=== PATIENT | male | born 1970 | race Caucasian/White ===

== ENCOUNTER → 2016-08-13 | Outpatient (CLI) | payer BC ==
[~2016-08-13] MED LIST: ALBUTEROL2.5 MG/3 M IH; AMOXICILLIN 8751 TAB PO; BYDUREON P2 MG/0.65 SQ; CARVEDILOL25 MG PO; CELEXA20 M1 PO; CETIRIZINE10 MG PO; CITALOPRAM20 MG; CYCLOBENZAPRINE10 M1 PO; FLEXERIL 1010 MG/TAB PO; FLOVENT DI50 MCG/Act IH; GLIPIZIDE ER5 MG PO; GLUCOPHAGE1000 MG PO; INSULIN 70/3100 U/ML; LANTUS SOLOS100 U/ML SC; LASIX 40MG TABL40 MG; LASIX20 MG PO; LIORESAL 1010 MG/TAB PO; LISINOPRIL AND1 TA1 PO; LISINOPRIL20 MG PO; METFORMIN1000 MG PO; MIRAPEX 1MG PO; NORCO 325 MG-51 TA1 PO; PRAVASTATIN40 MG PO; PREDNISONE20 M1 PO; PRILOSEC 20MG20 MG PO; Patient's Own Medication PO; ZITHROMAX 250M250 MG PO
== END ==
LOC: LAB 16:37
DX: E11.65 Type 2 diabetes mellitus with hyperglycemia (principal); I10 Essential (primary) hypertension

== ENCOUNTER → 2016-11-10 | Outpatient (CLI) | payer BC ==
[2015-03-13 12:03] VITALS: BP 160/87
== END ==
LOC: LAB 09:02
DX: I10 Essential (primary) hypertension (principal); E11.65 Type 2 diabetes mellitus with hyperglycemia

== ENCOUNTER 2017-05-03 15:57 | Emergency (ER) | payer OTHER ==
[~2017-05-03] VITALS: Ht 175.3 cm; Wt 203.3 kg
[~2017-05-03 15:57] MED LIST changes: -INSULIN 70/3100 U/ML; +INSULIN 70/3100 U/ML SQ; -LASIX 40MG TABL40 MG; +LASIX40 M1 PO
[2017-05-03] MEDS ORDERED: PROAIR HFA0.09 MG/AC IH (16:24)
[2017-05-03 16:28] LABS: BASO # 0.1 (0.02-0.10); EOS # 0.1 (0.04-0.40); EOS % 0.4 % (0.0-4.0); HEMATOCRIT 47.3 % (42.0-52.0); HEMOGLOBIN 13.9 g/dL (13.5-18.0); LYMPH# 2.4 (1.50-4.00); MEAN CELL VOLUME 82 fl (78-100); MEAN CORPUSCULAR HEMOGLOBIN 24 pg (27-31); MEAN PLATELET VOLUME 11.6 fl (7.4-10.4); MONO # 1.3 (0.20-0.80); PLATELET COUNT 265 K/mm3 (130-400); RED BLOOD COUNT 5.75 M/mm3 (4.20-5.60); RED CELL DISTRIBUTION WIDTH 16.2 % (11.5-14.5); WHITE BLOOD COUNT 14.3 K/mm3 (4.8-10.8)
[2017-05-03 16:34] LABS: MEAN CORPUSCULAR HGB CONC 29 g/dL (33-37); NEU # 10.3 (1.40-6.50)
[2017-05-03 16:42] LABS: ALBUMIN 3.4 g/dL (3.5-5.0); BUN/CREATININE RATIO 22.5 (6.0-26.0); CALCIUM 8.6 mg/dL (8.4-10.2); POTASSIUM 4.6 mmol/L (3.6-5.0); TOTAL BILIRUBIN 0.4 mg/dL (0.2-1.3); TOTAL PROTEIN 7.3 g/dL (6.3-8.2)
[2017-05-03 16:46] LABS: D-DIMER 0.69 mg/L FEU (0.15-0.50)
[2017-05-03 16:52] LABS: TROPONIN-I < 0.03 ng/mL (0.00-0.06)
[2017-05-03 17:43] LABS: URINE APPEARANCE CLOUDY; URINE BILIRUBIN NEGATIVE (NEGATIVE); URINE COLOR YELLOW; URINE KETONE NEGATIVE (NEGATIVE); URINE PROTEIN(semi-quant) 3+ mg/dL (NEGATIVE); URINE UROBILINOGEN NORMAL (NORMAL)
[2017-05-03 17:44] LABS: URINE BLOOD NEGATIVE (NEGATIVE); URINE LEUKOCYTE ESTERASE 1+ (NEGATIVE); URINE MUCUS PRESENT (NOT PRESENT); URINE NITRATE NEGATIVE (NEGATIVE); URINE WBC 16-30 /hpf (0-3)
[2017-05-03 22:47] VITALS: BP 151/70
== END 2017-05-03 21:20 | disposition short-term general hospital (02) ==
LOC: ED 15:57
PROVIDERS: Family Medicine
DX: I50.9 Heart failure, unspecified (principal); E11.9 Type 2 diabetes mellitus without complications; N39.0 Urinary tract infection, site not specified; M79.3 Panniculitis, unspecified; R41.0 Disorientation, unspecified; Z79.4 Long term (current) use of insulin; J44.9 Chronic obstructive pulmonary disease, unspecified; Z85.47 Personal history of malignant neoplasm of testis; Z99.81 Dependence on supplemental oxygen
CPT/HCPCS: A4340; J1815; J1940

== ENCOUNTER 2017-07-02 11:00 | Outpatient (RCR) | payer OTHER, MEDICAID ==
[~2017-07-02 11:00] MED LIST changes: +PROAIR HFA0.09 MG/AC IH
[2017-07-07] MEDS ORDERED: LISINOPRIL10 MG PO (13:37)
[2017-07-07] MEDS ORDERED: ACETAMINOPHEN-H1 TA2 PO (13:38)
[2017-07-07] MEDS ORDERED: CYCLOBENZAPRINE10 M1 PO (13:38)
[2017-07-07] MEDS ORDERED: GABAPENTIN TAB600 MG PO (13:39)
== END 2017-09-24 | disposition home or self-care (01) ==
LOC: PT
DX: G72.9 Myopathy, unspecified (principal)

== ENCOUNTER 2017-07-07 13:23 | Emergency (ER) | payer OTHER, MEDICAID ==
[~2017-07-07] VITALS: Ht 175.3 cm; Wt 172.3 kg
[2017-07-07] MEDS ORDERED: LISINOPRIL10 MG PO (13:37)
[2017-07-07] MEDS ORDERED: ACETAMINOPHEN-H1 TA2 PO (13:38)
[2017-07-07] MEDS ORDERED: CYCLOBENZAPRINE10 M1 PO (13:38)
[2017-07-07] MEDS ORDERED: GABAPENTIN TAB600 MG PO (13:39)
[2017-07-07 14:17] LABS: BASO # 0.1 (0.02-0.10); EOS # 0.2 (0.04-0.40); HEMATOCRIT 38.3 % (42.0-52.0); HEMOGLOBIN 11.5 g/dL (13.5-18.0); LYMPH# 2.1 (1.50-4.00); MEAN CELL VOLUME 80 fl (78-100); MEAN CORPUSCULAR HEMOGLOBIN 24 pg (27-31); MEAN CORPUSCULAR HGB CONC 30 g/dL (33-37); MEAN PLATELET VOLUME 10.5 fl (7.4-10.4); MONO # 0.8 (0.20-0.80); NEU # 7.3 (1.40-6.50); PLATELET COUNT 226 K/mm3 (130-400); RED BLOOD COUNT 4.77 M/mm3 (4.20-5.60); WHITE BLOOD COUNT 10.5 K/mm3 (4.8-10.8)
[2017-07-07 14:29] LABS: URINE APPEARANCE CLEAR; URINE BILIRUBIN NEGATIVE (NEGATIVE); URINE BLOOD TRACE (NEGATIVE); URINE COLOR YELLOW; URINE GLUCOSE NEGATIVE (NEGATIVE); URINE KETONE NEGATIVE (NEGATIVE); URINE LEUKOCYTE ESTERASE NEGATIVE (NEGATIVE); URINE NITRATE NEGATIVE (NEGATIVE); URINE PROTEIN(semi-quant) TRACE mg/dL (NEGATIVE); URINE UROBILINOGEN NORMAL (NORMAL)
[2017-07-07 14:41] LABS: ALT/SGPT 27 U/L (21-72); AST-SGOT 25 U/L (17-59); BUN/CREATININE RATIO 21.1 (6.0-26.0); CALCIUM 9.6 mg/dL (8.4-10.2); CARBON DIOXIDE 35 mmol/L (22-30); GLUCOSE 118 mg/dL (75-110); POTASSIUM 4.4 mmol/L (3.6-5.0); SODIUM 141 mmol/L (137-145); TOTAL BILIRUBIN 0.5 mg/dL (0.2-1.3); TOTAL PROTEIN 8.1 g/dL (6.3-8.2)
[2017-07-07 14:46] LABS: ACETAMINOPHEN < 4 ug/mL (10-30); ALCOHOL IN-HOUSE < 10 mg/dL
[2017-07-07 20:38] VITALS: BP 160/89
== END 2017-07-07 20:23 ==
LOC: ED 13:23
PROVIDERS: Physician Assistant
DX: F32.9 Major depressive disorder, single episode, unspecified (principal); R45.851 Suicidal ideations; I11.0 Hypertensive heart disease with heart failure; I50.9 Heart failure, unspecified; E11.9 Type 2 diabetes mellitus without complications; Z85.47 Personal history of malignant neoplasm of testis; Z90.79 Acquired absence of other genital organ(s); Z99.81 Dependence on supplemental oxygen; Z93.1 Gastrostomy status; L89.322 Pressure ulcer of left buttock, stage 2; Z91.14 Patient's other noncompliance with medication regimen; Z79.4 Long term (current) use of insulin

== ENCOUNTER 2017-10-21 09:09 | Emergency (ER) | payer BC, MEDICARE, MEDICAID ==
[~2017-10-21] VITALS: Wt 190.2 kg
[~2017-10-21 09:09] MED LIST changes: +ACETAMINOPHEN-H1 TA2 PO; +LISINOPRIL10 MG PO; +NEURONTIN300 MG/CAP PO
[2017-10-21 10:19] LABS: EOS # 0.2 (0.04-0.40); EOS % 1.7 % (0.0-4.0); HEMATOCRIT 35.9 % (42.0-52.0); HEMOGLOBIN 10.5 g/dL (13.5-18.0); LYMPH# 1.6 (1.50-4.00); MEAN CELL VOLUME 81 fl (78-100); MEAN CORPUSCULAR HEMOGLOBIN 24 pg (27-31); MEAN PLATELET VOLUME 11.2 fl (7.4-10.4); MONO # 0.7 (0.20-0.80); NEU # 7.4 (1.40-6.50); PLATELET COUNT 189 K/mm3 (130-400); RED BLOOD COUNT 4.41 M/mm3 (4.20-5.60); RED CELL DISTRIBUTION WIDTH 16.4 % (11.5-14.5); WHITE BLOOD COUNT 9.9 K/mm3 (4.8-10.8)
[2017-10-21 10:20] LABS: MEAN CORPUSCULAR HGB CONC 29 g/dL (33-37)
[2017-10-21] MEDS ORDERED: CONTRAVE1 TER PO (10:21)
[2017-10-21 10:24] LABS: ALBUMIN 3.7 g/dL (3.5-5.0); BUN/CREATININE RATIO 21.2 (6.0-26.0); CALCIUM 8.9 mg/dL (8.4-10.2); TOTAL BILIRUBIN 0.4 mg/dL (0.2-1.3); TOTAL PROTEIN 7.9 g/dL (6.3-8.2)
[2017-10-21] MEDS ORDERED: ALLERGY RELIEF10 M2 PO (10:25)
[2017-10-21] MEDS ORDERED: VITAMIN E200 UNIT PO (10:26)
[2017-10-21] MEDS ORDERED: FOLIC ACID1 MG PO (10:27)
[2017-10-21] MEDS ORDERED: VITAMIN C PURE500 M1 (10:27)
[2017-10-21] MEDS ORDERED: DESYREL 100MG100 MG PO (10:28)
[2017-10-21 10:30] LABS: D-DIMER 0.43 mg/L FEU (0.15-0.50)
[2017-10-21] MEDS ORDERED: SERTRALINE HYD100 MG PO (10:30)
[2017-10-21] MEDS ORDERED: ZOLOFT25 M1 PO (10:30)
[2017-10-21 10:32] LABS: CKMB ISOENZYME 0.9 ng/mL (0.6-3.5)
[2017-10-21 10:37] LABS: TROPONIN-I < 0.03 ng/mL (0.00-0.06)
[2017-10-21 11:22] VITALS: BP 152/68
== END 2017-10-21 11:36 | disposition home or self-care (01) ==
LOC: ED 09:09
PROVIDERS: Physician Assistant
DX: I11.0 Hypertensive heart disease with heart failure (principal); I50.9 Heart failure, unspecified; E66.2 Morbid (severe) obesity with alveolar hypoventilation; E11.40 Type 2 diabetes mellitus with diabetic neuropathy, unspecified; K21.9 Gastro-esophageal reflux disease without esophagitis; F32.9 Major depressive disorder, single episode, unspecified; Z85.47 Personal history of malignant neoplasm of testis; Z99.81 Dependence on supplemental oxygen; Z79.4 Long term (current) use of insulin

== ENCOUNTER → 2017-11-23 | Outpatient (CLI) | payer BC, MEDICARE, MEDICAID ==
[~2017-11-23] MED LIST changes: +ALLERGY RELIEF10 M2 PO; +CONTRAVE1 TER PO; +DESYREL 100MG100 MG PO; +FOLIC ACID1 MG PO; +SERTRALINE HYD100 MG PO; +VITAMIN C PURE500 M1; +VITAMIN E200 UNIT PO; +ZOLOFT25 M1 PO
== END ==
LOC: RAD 11:57
DX: M79.662 Pain in left lower leg (principal)

== ENCOUNTER → 2017-11-24 | Outpatient (CLI) | payer BC, MEDICARE, MEDICAID ==
[2017-11-24 18:54] LABS: EOS # 0.2 (0.04-0.40); EOS % 1.3 % (0.0-4.0); HEMATOCRIT 37.2 % (42.0-52.0); HEMOGLOBIN 10.5 g/dL (13.5-18.0); LYMPH# 1.8 (1.50-4.00); MEAN CELL VOLUME 82 fl (78-100); MEAN CORPUSCULAR HEMOGLOBIN 23 pg (27-31); MEAN PLATELET VOLUME 11.9 fl (7.4-10.4); MONO # 0.7 (0.20-0.80); PLATELET COUNT 193 K/mm3 (130-400); RED BLOOD COUNT 4.56 M/mm3 (4.20-5.60); RED CELL DISTRIBUTION WIDTH 16.3 % (11.5-14.5); WHITE BLOOD COUNT 11.9 K/mm3 (4.8-10.8)
[2017-11-24 19:04] LABS: ALBUMIN 3.6 g/dL (3.5-5.0); BUN/CREATININE RATIO 21.6 (6.0-26.0); POTASSIUM 3.8 mmol/L (3.6-5.0); TOTAL BILIRUBIN 0.4 mg/dL (0.2-1.3); TOTAL PROTEIN 7.2 g/dL (6.3-8.2)
[2017-11-24 20:21] LABS: MEAN CORPUSCULAR HGB CONC 28 g/dL (33-37); NEU # 9.2 (1.40-6.50)
[2017-11-25 07:34] LABS: URINE APPEARANCE CLEAR; URINE BILIRUBIN NEGATIVE (NEGATIVE); URINE BLOOD NEGATIVE (NEGATIVE); URINE COLOR YELLOW; URINE GLUCOSE NEGATIVE (NEGATIVE); URINE KETONE NEGATIVE (NEGATIVE); URINE LEUKOCYTE ESTERASE NEGATIVE (NEGATIVE); URINE NITRATE NEGATIVE (NEGATIVE); URINE PROTEIN(semi-quant) 1+ mg/dL (NEGATIVE); URINE UROBILINOGEN NORMAL (NORMAL); URINE WBC 0-1 /hpf (0-3)
[2017-11-25 14:57] LABS: TESTOSTERONE 60 ng/dL (240-871)
== END ==
LOC: LAB 16:54
PROVIDERS: Family Medicine
DX: E11.65 Type 2 diabetes mellitus with hyperglycemia (principal); L03.90 Cellulitis, unspecified; E66.01 Morbid (severe) obesity due to excess calories; G47.33 Obstructive sleep apnea (adult) (pediatric)

== ENCOUNTER → 2017-12-02 | Outpatient (CLI) | payer BC, MEDICARE, MEDICAID ==
[2017-12-02 16:08] LABS: BUN/CREATININE RATIO 24.1 (6.0-26.0); CALCIUM 9.1 mg/dL (8.4-10.2); GLUCOSE 196 mg/dL (75-110); POTASSIUM 4.3 mmol/L (3.6-5.0); SODIUM 140 mmol/L (137-145)
[2017-12-02 16:32] LABS: CARBON DIOXIDE > 40 mmol/L (22-30)
== END ==
LOC: LAB 15:26
DX: I50.9 Heart failure, unspecified (principal)

== ENCOUNTER → 2017-12-16 | Outpatient (CLI) | payer BC, MEDICARE, MEDICAID ==
[2017-12-16 16:50] LABS: BUN/CREATININE RATIO 26.2 (6.0-26.0); CALCIUM 8.7 mg/dL (8.4-10.2); POTASSIUM 3.8 mmol/L (3.6-5.0)
== END ==
LOC: LAB 15:33
PROVIDERS: Family Medicine
DX: I50.22 Chronic systolic (congestive) heart failure (principal)

== ENCOUNTER → 2018-01-06 | Outpatient (CLI) | payer BC, MEDICARE, MEDICAID ==
[2018-01-06 17:16] LABS: BUN/CREATININE RATIO 22.5 (6.0-26.0); CALCIUM 8.4 mg/dL (8.4-10.2); POTASSIUM 3.9 mmol/L (3.6-5.0)
== END ==
LOC: LAB 16:27
PROVIDERS: Internal Medicine Cardiovascular Disease
DX: I50.22 Chronic systolic (congestive) heart failure (principal)

== ENCOUNTER → 2018-06-14 | Outpatient (CLI) | payer MEDICARE, BC ==
[2018-06-14 15:49] LABS: ALBUMIN 4.1 g/dL (3.5-5.0); CALCIUM 9.2 mg/dL (8.4-10.2); POTASSIUM 4.3 mmol/L (3.6-5.0); TOTAL BILIRUBIN 0.6 mg/dL (0.2-1.3); TOTAL PROTEIN 7.3 g/dL (6.3-8.2)
[2018-06-14 15:54] LABS: URINE APPEARANCE CLEAR; URINE COLOR YELLOW
[2018-06-14 15:55] LABS: URINE BILIRUBIN NEGATIVE (NEGATIVE); URINE BLOOD TRACE (NEGATIVE); URINE GLUCOSE NEGATIVE (NEGATIVE); URINE KETONE NEGATIVE (NEGATIVE); URINE LEUKOCYTE ESTERASE NEGATIVE (NEGATIVE); URINE NITRATE NEGATIVE (NEGATIVE); URINE PROTEIN(semi-quant) TRACE mg/dL (NEGATIVE); URINE UROBILINOGEN NORMAL (NORMAL)
[2018-06-14 16:00] LABS: EOS # 0.1 (0.04-0.40); EOS % 1.2 % (0.0-4.0); HEMATOCRIT 39.3 % (42.0-52.0); HEMOGLOBIN 11.3 g/dL (13.5-18.0); LYMPH# 1.6 (1.50-4.00); MEAN CELL VOLUME 81 fl (78-100); MEAN CORPUSCULAR HEMOGLOBIN 23 pg (27-31); MEAN PLATELET VOLUME 11.8 fl (7.4-10.4); MONO # 0.8 (0.20-0.80); PLATELET COUNT 201 K/mm3 (130-400); RED BLOOD COUNT 4.84 M/mm3 (4.20-5.60); RED CELL DISTRIBUTION WIDTH 16.3 % (11.5-14.5); WHITE BLOOD COUNT 11.6 K/mm3 (4.8-10.8)
[2018-06-14 16:09] LABS: MEAN CORPUSCULAR HGB CONC 29 g/dL (33-37)
[2018-06-15 00:02] LABS: TESTOSTERONE 596 ng/dL (240-871)
== END ==
LOC: LAB 14:51
PROVIDERS: Family Medicine
DX: I11.0 Hypertensive heart disease with heart failure (principal); I50.9 Heart failure, unspecified

== ENCOUNTER 2018-06-21 15:45 | Emergency (ER) | payer MEDICARE, BC ==
[~2018-06-21] VITALS: Ht 175.3 cm; Wt 207.0 kg
[~2018-06-21 15:45] MED LIST changes: -MIRAPEX 1MG PO; +MIRAPEX1 MG PO; -VITAMIN C PURE500 M1; +VITAMIN C PURE500 M1 PO
[2018-06-21 16:34] LABS: HEMATOCRIT 38.1 % (42.0-52.0); HEMOGLOBIN 10.8 g/dL (13.5-18.0); MEAN CELL VOLUME 82 fl (78-100); MEAN CORPUSCULAR HEMOGLOBIN 23 pg (27-31); MEAN PLATELET VOLUME 11.9 fl (7.4-10.4); PLATELET COUNT 194 K/mm3 (130-400); RED BLOOD COUNT 4.64 M/mm3 (4.20-5.60); RED CELL DISTRIBUTION WIDTH 16.6 % (11.5-14.5)
[2018-06-21 16:36] LABS: ALBUMIN 4.2 g/dL (3.5-5.0); CALCIUM 8.6 mg/dL (8.4-10.2); TOTAL BILIRUBIN 0.6 mg/dL (0.2-1.3); TOTAL PROTEIN 7.7 g/dL (6.3-8.2)
[2018-06-21] MEDS ORDERED: TADALAFIL5 M1 PO (16:48)
[2018-06-21] MEDS ORDERED: MUCINEX 60600 MG/TA1 PO (16:52)
[2018-06-21] MEDS ORDERED: CONTRAVE1 TER PO (16:52)
[2018-06-21] MEDS ORDERED: PROAIR HFA0.09 MG/AC IH (16:53)
[2018-06-21] MEDS ORDERED: LASIX 80MG TABL80 MG (16:55)
[2018-06-21] MEDS ORDERED: POTASSIUM CHLO20 ME4 PO (16:58)
[2018-06-21] MEDS ORDERED: TESTOSTERO200 MG/1 M IM (16:58)
[2018-06-21] MEDS ORDERED: METOLAZONE5 MG PO (16:58)
[2018-06-21] MEDS ORDERED: MAGNESIUM OXIDE (16:59)
[2018-06-21 17:20] LABS: MEAN CORPUSCULAR HGB CONC 28 g/dL (33-37)
[2018-06-21 17:35] LABS: NEUTROPHILS 81 % (42-75)
[2018-06-21 17:36] LABS: LYMPHOCYTE 11 % (20-51); MONOCYTE 7 % (3-10)
[2018-06-21 20:20] VITALS: BP 168/82
[2018-06-21] MEDS ORDERED: DESYREL50 MG PO (22:26)
== END 2018-06-21 20:20 | disposition other institution (70) ==
LOC: ED 15:45
PROVIDERS: Nurse Practitioner Primary Care
DX: I11.0 Hypertensive heart disease with heart failure (principal); I50.9 Heart failure, unspecified; R09.02 Hypoxemia; E66.2 Morbid (severe) obesity with alveolar hypoventilation; I25.10 Atherosclerotic heart disease of native coronary artery without angina pectoris; J44.9 Chronic obstructive pulmonary disease, unspecified; E11.40 Type 2 diabetes mellitus with diabetic neuropathy, unspecified; Z99.81 Dependence on supplemental oxygen; G47.33 Obstructive sleep apnea (adult) (pediatric); F32.9 Major depressive disorder, single episode, unspecified; K21.9 Gastro-esophageal reflux disease without esophagitis; Z79.4 Long term (current) use of insulin; Z79.899 Other long term (current) drug therapy

== ENCOUNTER 2018-06-25 16:54 | Inpatient (IN) | payer MEDICARE, BC ==
[~2018-06-25] VITALS: Ht 175.3 cm; Wt 183.1 kg
[~2018-06-25 16:54] MED LIST changes: +DESYREL50 MG PO; +LASIX 80MG TABL80 MG; +MAGNESIUM OXIDE; +METOLAZONE5 MG PO; +MUCINEX 60600 MG/TA1 PO; +POTASSIUM CHLO20 ME4 PO; +TADALAFIL5 M1 PO; +TESTOSTERO200 MG/1 M IM
[2018-06-25 18:45] VITALS: BP 134/76
[2018-06-26 06:29] VITALS: BP 125/74
[2018-06-26 19:04] VITALS: BP 136/71
[2018-06-27 06:19] VITALS: BP 107/77
[2018-06-27 19:25] VITALS: BP 126/64
[2018-06-28 06:37] VITALS: BP 108/48
[2018-06-28 19:00] VITALS: BP 115/58
[2018-06-29 06:31] VITALS: BP 94/56
[2018-06-29 11:40] VITALS: BP 94/56
== END 2018-06-29 13:45 | DRG 947 ==
LOC: MED/SURG 16:54
PROVIDERS: ADMIT Family Medicine
DX: R53.81 Other malaise (principal); J96.21 Acute and chronic respiratory failure with hypoxia; I50.33 Acute on chronic diastolic (congestive) heart failure; I13.0 Hypertensive heart and chronic kidney disease with heart failure and stage 1 through stage 4 chronic kidney disease, or unspecified chronic kidney disease; Z68.44 Body mass index [BMI] 60.0-69.9, adult; N18.9 Chronic kidney disease, unspecified; E11.22 Type 2 diabetes mellitus with diabetic chronic kidney disease; Z79.4 Long term (current) use of insulin; D50.9 Iron deficiency anemia, unspecified; I25.10 Atherosclerotic heart disease of native coronary artery without angina pectoris; E11.21 Type 2 diabetes mellitus with diabetic nephropathy; E66.01 Morbid (severe) obesity due to excess calories
CPT/HCPCS: J1071; J1650; J1815

== ENCOUNTER → 2018-10-12 | Outpatient (CLI) | payer MEDICARE, BC ==
[2018-10-12 11:52] LABS: EOS # 0.2 (0.04-0.40); HEMATOCRIT 37.4 % (42.0-52.0); HEMOGLOBIN 11.5 g/dL (13.5-18.0); LYMPH# 1.3 (1.50-4.00); MEAN CELL VOLUME 82 fl (78-100); MEAN CORPUSCULAR HEMOGLOBIN 25 pg (27-31); MEAN CORPUSCULAR HGB CONC 31 g/dL (33-37); MONO # 0.7 (0.20-0.80); NEU # 7.5 (1.40-6.50); PLATELET COUNT 179 K/mm3 (130-400); RED BLOOD COUNT 4.57 M/mm3 (4.20-5.60); RED CELL DISTRIBUTION WIDTH 18.2 % (11.5-14.5); WHITE BLOOD COUNT 9.7 K/mm3 (4.8-10.8)
[2018-10-12 11:54] LABS: ALBUMIN 4.2 g/dL (3.5-5.0); CALCIUM 9.8 mg/dL (8.4-10.2); TOTAL BILIRUBIN 0.5 mg/dL (0.2-1.3); TOTAL PROTEIN 8.1 g/dL (6.3-8.2)
[2018-10-13 00:04] LABS: TESTOSTERONE 140 ng/dL (240-871)
== END ==
LOC: LAB 11:01
PROVIDERS: Family Medicine
DX: D50.9 Iron deficiency anemia, unspecified (principal); E66.01 Morbid (severe) obesity due to excess calories; E11.65 Type 2 diabetes mellitus with hyperglycemia; I11.0 Hypertensive heart disease with heart failure; E11.21 Type 2 diabetes mellitus with diabetic nephropathy

== ENCOUNTER 2018-11-11 10:39 | Emergency (ER) | payer MEDICARE, BC ==
[~2018-11-11] VITALS: Wt 189.8 kg
[~2018-11-11 10:39] MED LIST changes: +BACTRIM DS TAB1 EACH PO; +CEPHALEXIN500 M1 PO; +LASIX 80MG TABL80 MG PO; -MAGNESIUM OXIDE; +MAGNESIUM OXIDE PO
[2018-11-11 11:18] LABS: EOS # 0.3 (0.04-0.40); EOS % 2.7 % (0.0-4.0); HEMATOCRIT 34.7 % (42.0-52.0); HEMOGLOBIN 11.5 g/dL (13.5-18.0); LYMPH# 1.2 (1.50-4.00); MEAN CELL VOLUME 94 fl (78-100); MEAN CORPUSCULAR HEMOGLOBIN 31 pg (27-31); MEAN CORPUSCULAR HGB CONC 33 g/dL (33-37); MEAN PLATELET VOLUME 10.8 fl (7.4-10.4); MONO # 0.8 (0.20-0.80); NEU # 7.1 (1.40-6.50); PLATELET COUNT 157 K/mm3 (130-400); RED BLOOD COUNT 3.68 M/mm3 (4.20-5.60); RED CELL DISTRIBUTION WIDTH 19.8 % (11.5-14.5); WHITE BLOOD COUNT 9.4 K/mm3 (4.8-10.8)
[2018-11-11 11:29] LABS: ALBUMIN 4.4 g/dL (3.5-5.0); ALT/SGPT 15 U/L (21-72); AST-SGOT 24 U/L (17-59); CALCIUM 9.1 mg/dL (8.4-10.2); GLUCOSE 103 mg/dL (75-110); POTASSIUM 4.1 mmol/L (3.6-5.0); SODIUM 137 mmol/L (137-145); TOTAL BILIRUBIN 0.5 mg/dL (0.2-1.3); TOTAL PROTEIN 8.3 g/dL (6.3-8.2)
[2018-11-11 11:31] LABS: CARBON DIOXIDE > 40 mmol/L (22-30)
[2018-11-11 11:32] LABS: URINE WBC 0 /hpf (0-3)
[2018-11-11 11:51] LABS: URINE APPEARANCE CLEAR; URINE BILIRUBIN NEGATIVE (NEGATIVE); URINE BLOOD NEGATIVE (NEGATIVE); URINE COLOR YELLOW; URINE GLUCOSE NEGATIVE (NEGATIVE); URINE KETONE NEGATIVE (NEGATIVE); URINE LEUKOCYTE ESTERASE NEGATIVE (NEGATIVE); URINE NITRATE NEGATIVE (NEGATIVE); URINE PROTEIN(semi-quant) TRACE mg/dL (NEGATIVE); URINE UROBILINOGEN NORMAL (NORMAL)
[2018-11-11 12:09] LABS: D-DIMER 0.49 mg/L FEU (0.15-0.50)
[2018-11-11 15:04] VITALS: BP 169/77
[2018-11-12] MEDS ORDERED: VIAGRA100 M1 PO (06:39)
[2018-11-12] MEDS ORDERED: PREMIERPRO IM (06:40)
[2018-11-12] MEDS ORDERED: NATURE'S BLEND500 M1 PO (06:41)
[2018-11-12] MEDS ORDERED: MASON NATURAL O1 SGL PO (06:41)
[2018-11-12] MEDS ORDERED: FERRACTIV IRON1 EACH PO (06:43)
[2018-11-12] MEDS ORDERED: PRILOSEC OTC20 MG PO (06:44)
== END 2018-11-11 15:00 | disposition home or self-care (01) ==
LOC: ED 10:39
PROVIDERS: Nurse Practitioner Primary Care
DX: L03.116 Cellulitis of left lower limb (principal); R60.0 Localized edema; E11.9 Type 2 diabetes mellitus without complications; I10 Essential (primary) hypertension; E66.01 Morbid (severe) obesity due to excess calories; G47.33 Obstructive sleep apnea (adult) (pediatric); F32.9 Major depressive disorder, single episode, unspecified; G25.81 Restless legs syndrome; Z79.4 Long term (current) use of insulin; Z79.84 Long term (current) use of oral hypoglycemic drugs; Z90.89 Acquired absence of other organs
CPT/HCPCS: J2270; J3370; J7040

== ENCOUNTER → 2018-11-14 | Outpatient (CLI) | payer MEDICARE, BC ==
[2018-11-13 20:39] VITALS: BP 191/98
[~2018-11-14] MED LIST changes: +FERRACTIV IRON1 EACH PO; +MASON NATURAL O1 SGL PO; +NATURE'S BLEND500 M1 PO; +PREMIERPRO IM; +PRILOSEC OTC20 MG PO; +VIAGRA100 M1 PO
== END ==
LOC: LAB 06:50
DX: Z01.89 Encounter for other specified special examinations (principal)

== ENCOUNTER 2018-11-17 19:22 | Outpatient (RCR) | payer MEDICARE, BC ==
[2018-11-12 06:50] VITALS: BP 128/67
[2018-11-12 09:14] VITALS: BP 129/79
[2018-11-12 18:47] VITALS: BP 132/59
[2018-11-12 20:41] VITALS: BP 96/51
[2018-11-13 06:40] VITALS: BP 139/66
[2018-11-13 09:58] VITALS: BP 157/80
[2018-11-13 18:40] VITALS: BP 203/93
[2018-11-13 20:39] VITALS: BP 191/98
[2018-11-14 07:16] VITALS: BP 168/75
[2018-11-14 10:22] VITALS: BP 159/74
[2018-11-14 18:30] VITALS: BP 168/64
[2018-11-14 20:39] VITALS: BP 131/78
[2018-11-15 06:50] VITALS: BP 184/82
[2018-11-15 08:51] VITALS: BP 148/73
[2018-11-15 18:47] VITALS: BP 181/69
[2018-11-15 20:42] LABS: VANCOMYCIN TROUGH AMS
[2018-11-15 21:22] VITALS: BP 130/72
[2018-11-16 06:54] VITALS: BP 160/54
[2018-11-16 09:12] VITALS: BP 165/96
[2018-11-16 18:30] VITALS: BP 183/88
[2018-11-16 20:52] VITALS: BP 152/78
[~2018-11-17] VITALS: Ht 175.3 cm; Wt 189.8 kg
[2018-11-17 08:19] VITALS: BP 194/89
[2018-11-17 10:52] VITALS: BP 155/92
[2018-11-17 19:23] VITALS: BP 189/87
[2018-11-17 21:35] VITALS: BP 151/88
[2018-11-18 10:23] VITALS: BP 170/87
[2018-11-18 12:44] VITALS: BP 147/82
== END 2018-11-18 12:44 | disposition home or self-care (01) ==
LOC: AMSURD 19:22
PROVIDERS: Nurse Practitioner Primary Care
DX: L03.116 Cellulitis of left lower limb (principal); R60.0 Localized edema
CPT/HCPCS: J3370; J7040

== ENCOUNTER → 2018-12-17 | Outpatient (CLI) | payer MEDICARE, BC ==
[2018-11-18 12:44] VITALS: BP 147/82
[2018-12-17 12:24] LABS: ALBUMIN 3.8 g/dL (3.5-5.0); CALCIUM 9.3 mg/dL (8.3-10.5); TOTAL BILIRUBIN 0.3 mg/dL (0.2-1.2); TOTAL PROTEIN 7.8 g/dL (6.4-8.3)
[2018-12-17 12:51] LABS: EOS # 0.1 (0.04-0.40); EOS % 1.5 % (0.0-4.0); HEMATOCRIT 41.3 % (42.0-52.0); HEMOGLOBIN 11.5 g/dL (13.5-18.0); LYMPH# 1.5 (1.50-4.00); MEAN CELL VOLUME 80 fl (78-100); MEAN CORPUSCULAR HEMOGLOBIN 22 pg (27-31); MEAN PLATELET VOLUME 11.6 fl (7.4-10.4); MONO # 0.7 (0.20-0.80); NEU # 7.1 (1.40-6.50); PLATELET COUNT 208 K/mm3 (130-400); RED BLOOD COUNT 5.17 M/mm3 (4.20-5.60); RED CELL DISTRIBUTION WIDTH 16.7 % (11.5-14.5); WHITE BLOOD COUNT 9.5 K/mm3 (4.8-10.8)
[2018-12-17 12:53] LABS: MEAN CORPUSCULAR HGB CONC 28 g/dL (33-37)
== END ==
LOC: LAB 10:46
PROVIDERS: Family Medicine
DX: I50.9 Heart failure, unspecified (principal); E11.9 Type 2 diabetes mellitus without complications; L03.90 Cellulitis, unspecified; R79.89 Other specified abnormal findings of blood chemistry

== ENCOUNTER 2018-12-31 13:30 | Outpatient (RCR) | payer MEDICARE, BC | END 2018-12-31 14:00 | disposition still patient (30) | LOC: OT 13:30 | DX: E66.01 Morbid (severe) obesity due to excess calories (principal) ==

== ENCOUNTER 2018-12-31 15:01 | Emergency (ER) | payer MEDICARE, BC ==
[~2018-12-31] VITALS: Ht 175.3 cm; Wt 188.2 kg
[2018-12-31 15:58] LABS: BASO # 0.1 (0.02-0.10); EOS # 0.1 (0.04-0.40); HEMATOCRIT 38.8 % (42.0-52.0); LYMPH# 1.3 (1.50-4.00); MEAN CELL VOLUME 78 fl (78-100); MEAN CORPUSCULAR HEMOGLOBIN 22 pg (27-31); MEAN PLATELET VOLUME 10.9 fl (7.4-10.4); MONO # 0.7 (0.20-0.80); NEU # 7.9 (1.40-6.50); PLATELET COUNT 158 K/mm3 (130-400); RED BLOOD COUNT 4.96 M/mm3 (4.20-5.60); RED CELL DISTRIBUTION WIDTH 17.7 % (11.5-14.5); WHITE BLOOD COUNT 10.1 K/mm3 (4.8-10.8)
[2018-12-31 16:08] LABS: ALBUMIN 3.8 g/dL (3.5-5.0); POTASSIUM 3.8 mmol/L (3.5-5.1)
[2018-12-31 16:10] LABS: TOTAL PROTEIN 7.4 g/dL (6.4-8.3)
[2018-12-31 16:12] LABS: TOTAL BILIRUBIN 0.4 mg/dL (0.2-1.2)
[2018-12-31 16:22] LABS: PARTIAL THROMBOPLASTIN TIME 21.8 SECONDS (21.0-32.0); PROTHROMBIN TIME 10.1 SECONDS (9.0-12.0)
[2018-12-31 16:26] LABS: MEAN CORPUSCULAR HGB CONC 28 g/dL (33-37)
[2018-12-31 20:10] VITALS: BP 160/102
== END 2018-12-31 20:10 | disposition home or self-care (01) ==
LOC: ED 15:01
PROVIDERS: Nurse Practitioner Family
DX: E66.01 Morbid (severe) obesity due to excess calories (principal); R06.00 Dyspnea, unspecified; E11.9 Type 2 diabetes mellitus without complications; E78.5 Hyperlipidemia, unspecified; I10 Essential (primary) hypertension; K21.9 Gastro-esophageal reflux disease without esophagitis; F32.9 Major depressive disorder, single episode, unspecified; G47.30 Sleep apnea, unspecified; Z79.4 Long term (current) use of insulin

== ENCOUNTER 2019-01-05 11:35 | Inpatient (IN) | payer MEDICARE, BC ==
[~2019-01-05] VITALS: Ht 175.3 cm; Wt 187.1 kg
[2019-01-05] MEDS ORDERED: LUNESTA3 M1 PO (11:45)
[2019-01-05] MEDS ORDERED: ZYRTEC ALLERGY10 MG PO (11:47)
[2019-01-05] MEDS ORDERED: ALBUTEROL2.5 MG/3 M IH (11:47)
[2019-01-05] MEDS ORDERED: DIAMOX 250MG250 MG PO (11:51)
[2019-01-05] MEDS ORDERED: FERATE240 MG PO (11:52)
[2019-01-05] MEDS ORDERED: ALDACTONE 25MG25 MG PO (11:53)
[2019-01-05 12:11] VITALS: BP 164/80
[2019-01-05 12:25] LABS: EOS # 0.3 (0.04-0.40); EOS % 2.8 % (0.0-4.0); HEMATOCRIT 40.3 % (42.0-52.0); HEMOGLOBIN 11.5 g/dL (13.5-18.0); LYMPH# 1.7 (1.50-4.00); MEAN CELL VOLUME 78 fl (78-100); MEAN CORPUSCULAR HEMOGLOBIN 22 pg (27-31); MEAN PLATELET VOLUME 10.8 fl (7.4-10.4); MONO # 0.9 (0.20-0.80); PLATELET COUNT 176 K/mm3 (130-400); RED BLOOD COUNT 5.19 M/mm3 (4.20-5.60); RED CELL DISTRIBUTION WIDTH 18.2 % (11.5-14.5)
[2019-01-05 12:36] LABS: ALBUMIN 3.8 g/dL (3.5-5.0); POTASSIUM 3.6 mmol/L (3.5-5.1)
[2019-01-05 12:37] LABS: CALCIUM 9.2 mg/dL (8.3-10.5)
[2019-01-05 12:38] LABS: MEAN CORPUSCULAR HGB CONC 29 g/dL (33-37)
[2019-01-05 12:39] LABS: TOTAL PROTEIN 7.8 g/dL (6.4-8.3)
[2019-01-05 12:40] LABS: TOTAL BILIRUBIN 0.5 mg/dL (0.2-1.2)
[2019-01-05 14:14] LABS: URINE COLOR YELLOW
[2019-01-05 14:15] LABS: URINE APPEARANCE CLEAR; URINE BILIRUBIN NEGATIVE (NEGATIVE); URINE BLOOD NEGATIVE (NEGATIVE); URINE GLUCOSE NEGATIVE (NEGATIVE); URINE KETONE NEGATIVE (NEGATIVE); URINE LEUKOCYTE ESTERASE NEGATIVE (NEGATIVE); URINE NITRATE NEGATIVE (NEGATIVE); URINE PROTEIN(semi-quant) NEGATIVE (NEGATIVE); URINE UROBILINOGEN NORMAL (NORMAL); URINE WBC 0-1 /hpf (0-3)
[2019-01-05 15:00] VITALS: BP 134/62
[2019-01-05 18:53] VITALS: BP 157/81
[2019-01-05 22:49] VITALS: BP 147/77
[2019-01-06] VITALS (7 sets, daily range): BP systolic 96–155; BP diastolic 53–80
[2019-01-06 06:59] LABS: EOS # 0.2 (0.04-0.40); EOS % 1.6 % (0.0-4.0); HEMATOCRIT 41.4 % (42.0-52.0); HEMOGLOBIN 11.7 g/dL (13.5-18.0); LYMPH# 1.7 (1.50-4.00); MEAN CELL VOLUME 79 fl (78-100); MEAN CORPUSCULAR HEMOGLOBIN 22 pg (27-31); MEAN PLATELET VOLUME 10.7 fl (7.4-10.4); MONO # 0.9 (0.20-0.80); NEU # 7.1 (1.40-6.50); PLATELET COUNT 180 K/mm3 (130-400); RED BLOOD COUNT 5.27 M/mm3 (4.20-5.60); RED CELL DISTRIBUTION WIDTH 18.6 % (11.5-14.5); WHITE BLOOD COUNT 9.9 K/mm3 (4.8-10.8)
[2019-01-06 07:00] LABS: POTASSIUM 3.3 mmol/L (3.5-5.1)
[2019-01-06 07:01] LABS: MEAN CORPUSCULAR HGB CONC 28 g/dL (33-37)
[2019-01-07 02:37] VITALS: BP 119/69
[2019-01-07 06:12] VITALS: BP 142/77
[2019-01-07 11:59] VITALS: BP 170/84
[2019-01-07 15:31] VITALS: BP 138/77
[2019-01-07 18:47] VITALS: BP 133/69
[2019-01-07 23:34] VITALS: BP 158/74
[2019-01-08 02:55] VITALS: BP 151/78
[2019-01-08 06:30] VITALS: BP 159/77
[2019-01-08 11:27] VITALS: BP 147/74
[2019-01-08 14:45] LABS: POTASSIUM 4.2 mmol/L (3.5-5.1)
[2019-01-08 14:46] LABS: CALCIUM 9.1 mg/dL (8.3-10.5)
== END 2019-01-08 16:00 | disposition home or self-care (01) | DRG 603 ==
LOC: MED/SURG 11:35
PROVIDERS: Family Medicine; ADMIT Physician Assistant
PROC: 02HV33Z Insertion of Infusion Device into Superior Vena Cava, Percutaneous Approach (ICD-10-PCS; principal; 2019-01-08)
DX: L03.116 Cellulitis of left lower limb (principal); I50.32 Chronic diastolic (congestive) heart failure; E66.2 Morbid (severe) obesity with alveolar hypoventilation; Z68.44 Body mass index [BMI] 60.0-69.9, adult; L03.115 Cellulitis of right lower limb; I11.0 Hypertensive heart disease with heart failure; K21.9 Gastro-esophageal reflux disease without esophagitis; G25.81 Restless legs syndrome; E11.40 Type 2 diabetes mellitus with diabetic neuropathy, unspecified
CPT/HCPCS: J1650; J1815; J1940; J3370; J7050

== ENCOUNTER 2019-01-10 07:58 | Outpatient (RCR) | payer MEDICARE, BC ==
[2019-01-08 20:36] VITALS: BP 140/71
[2019-01-08 22:15] VITALS: BP 133/78
[2019-01-09 08:16] VITALS: BP 148/81
[2019-01-09 09:53] VITALS: BP 140/71
[2019-01-09 21:50] VITALS: BP 164/84; BP 174/84
[2019-01-09 22:00] VITALS: BP 174/84
[~2019-01-10] VITALS: Ht 175.3 cm; Wt 187.1 kg
[~2019-01-10 07:58] MED LIST changes: +ALDACTONE 25MG25 MG PO; +DIAMOX 250MG250 MG PO; +FERATE240 MG PO; +LUNESTA3 M1 PO; +ZYRTEC ALLERGY10 MG PO
[2019-01-10 08:15] VITALS: BP 169/92
[2019-01-10 10:08] VITALS: BP 161/61
== END 2019-01-10 18:00 | disposition home health service (06) ==
LOC: AMSURD 07:58
DX: L03.116 Cellulitis of left lower limb (principal); L03.115 Cellulitis of right lower limb
CPT/HCPCS: J3370; J7050

== ENCOUNTER → 2019-01-25 | Outpatient (CLI) | payer MEDICARE, BC ==
[2019-01-10 10:08] VITALS: BP 161/61
[2019-01-25 12:07] LABS: HEMOGLOBIN 11.5 g/dL (13.5-18.0); MEAN PLATELET VOLUME 10.9 fl (7.4-10.4); RED BLOOD COUNT 5.22 M/mm3 (4.20-5.60); RED CELL DISTRIBUTION WIDTH 18.7 % (11.5-14.5); WHITE BLOOD COUNT 11.6 K/mm3 (4.8-10.8)
[2019-01-25 12:38] LABS: CALCIUM 8.9 mg/dL (8.3-10.5)
[2019-01-25 12:39] LABS: TOTAL PROTEIN 7.4 g/dL (6.4-8.3)
[2019-01-25 12:41] LABS: TOTAL BILIRUBIN 0.5 mg/dL (0.2-1.2)
[2019-01-25 13:01] LABS: ALBUMIN 3.9 g/dL (3.5-5.0); POTASSIUM 4.2 mmol/L (3.5-5.1)
== END ==
LOC: LAB 11:40
PROVIDERS: Internal Medicine Pulmonary Disease
DX: J96.11 Chronic respiratory failure with hypoxia (principal); J96.12 Chronic respiratory failure with hypercapnia; R60.0 Localized edema

== ENCOUNTER 2019-04-05 17:01 | Inpatient (IN) | payer MEDICARE, BC ==
[~2019-04-05] VITALS: Ht 175.3 cm; Wt 163.9 kg
[2019-04-05 18:18] LABS: EOS # 0.2 (0.04-0.40); EOS % 1.6 % (0.0-4.0); HEMATOCRIT 42.5 % (42.0-52.0); HEMOGLOBIN 12.4 g/dL (13.5-18.0); LYMPH# 1.7 (1.50-4.00); MEAN CELL VOLUME 77 fl (78-100); MEAN CORPUSCULAR HEMOGLOBIN 22 pg (27-31); MEAN PLATELET VOLUME 11.5 fl (7.4-10.4); MONO # 0.7 (0.20-0.80); NEU # 7.2 (1.40-6.50); PLATELET COUNT 170 K/mm3 (130-400); RED BLOOD COUNT 5.53 M/mm3 (4.20-5.60); RED CELL DISTRIBUTION WIDTH 18.7 % (11.5-14.5); WHITE BLOOD COUNT 9.8 K/mm3 (4.8-10.8)
[2019-04-05 18:22] LABS: ALBUMIN 3.8 g/dL (3.5-5.0); MEAN CORPUSCULAR HGB CONC 29 g/dL (33-37); POTASSIUM 4.7 mmol/L (3.5-5.1); SODIUM 138 mmol/L (136-145)
[2019-04-05 18:23] LABS: CALCIUM 9.9 mg/dL (8.3-10.5)
[2019-04-05 18:24] LABS: GLUCOSE 209 mg/dL (75-110); TOTAL PROTEIN 7.9 g/dL (6.4-8.3)
[2019-04-05 18:26] LABS: CARBON DIOXIDE 31 mmol/L (22-29); TOTAL BILIRUBIN 0.3 mg/dL (0.2-1.2)
[2019-04-05 18:30] LABS: AST-SGOT 21 U/L (5-34)
[2019-04-05 18:31] LABS: ALT/SGPT 16 U/L (0-55)
[2019-04-05 18:37] LABS: TROPONIN-I < 0.03 ng/mL (<0.030)
[2019-04-05 19:29] VITALS: BP 146/83
[2019-04-05 19:37] VITALS: BP 146/83
[2019-04-05] MEDS ORDERED: ZOLPIDEM TART10 MG PO (19:38)
[2019-04-05] MEDS ORDERED: TESTOSTERO200 MG/1 M IM (19:38)
[2019-04-05] MEDS ORDERED: SILDENAFIL CITR20 M1 PO (19:39)
[2019-04-05] MEDS ORDERED: NOVOLOG FLEX100 U/ML SQ (19:40)
[2019-04-05 20:24] LABS: PH-URINE 6.5 (5.0 - 8.0); URINE APPEARANCE HAZY; URINE COLOR YELLOW; URINE PROTEIN(semi-quant) NEGATIVE (NEGATIVE)
[2019-04-05 20:25] LABS: URINE BILIRUBIN NEGATIVE (NEGATIVE); URINE BLOOD TRACE (NEGATIVE); URINE GLUCOSE NEGATIVE (NEGATIVE); URINE KETONE NEGATIVE (NEGATIVE); URINE LEUKOCYTE ESTERASE NEGATIVE (NEGATIVE); URINE NITRATE NEGATIVE (NEGATIVE); URINE UROBILINOGEN NORMAL (NORMAL)
[2019-04-05 23:00] VITALS: BP 164/88
[2019-04-06 03:00] VITALS: BP 125/75
[2019-04-06 06:22] LABS: EOS # 0.3 (0.04-0.40); EOS % 2.7 % (0.0-4.0); HEMATOCRIT 40.8 % (42.0-52.0); HEMOGLOBIN 12.3 g/dL (13.5-18.0); LYMPH# 2.1 (1.50-4.00); MEAN CELL VOLUME 76 fl (78-100); MEAN CORPUSCULAR HEMOGLOBIN 23 pg (27-31); MEAN CORPUSCULAR HGB CONC 30 g/dL (33-37); MONO # 0.7 (0.20-0.80); NEU # 6.1 (1.40-6.50); PLATELET COUNT 161 K/mm3 (130-400); RED BLOOD COUNT 5.35 M/mm3 (4.20-5.60); RED CELL DISTRIBUTION WIDTH 18.5 % (11.5-14.5); WHITE BLOOD COUNT 9.2 K/mm3 (4.8-10.8)
[2019-04-06 06:26] LABS: ALBUMIN 3.6 g/dL (3.5-5.0); POTASSIUM 3.6 mmol/L (3.5-5.1)
[2019-04-06 06:27] LABS: CALCIUM 9.2 mg/dL (8.3-10.5)
[2019-04-06 06:28] LABS: TOTAL PROTEIN 7.6 g/dL (6.4-8.3)
[2019-04-06 06:29] VITALS: BP 138/80
[2019-04-06 06:30] LABS: TOTAL BILIRUBIN 0.4 mg/dL (0.2-1.2)
[2019-04-06 11:00] VITALS: BP 128/75
[2019-04-06 15:20] VITALS: BP 116/67
[2019-04-06] MEDS ORDERED: LISINOPRIL10 MG PO (16:07)
[2019-04-06] MEDS ORDERED: ACETAMINOPHEN-H1 TA2 PO (16:08)
== END 2019-04-06 16:44 | disposition home or self-care (01) | DRG 291 ==
LOC: MED/SURG 17:01
PROVIDERS: ADMIT Family Medicine
DX: I13.0 Hypertensive heart and chronic kidney disease with heart failure and stage 1 through stage 4 chronic kidney disease, or unspecified chronic kidney disease (principal); I50.33 Acute on chronic diastolic (congestive) heart failure; Z68.43 Body mass index [BMI] 50.0-59.9, adult; N17.9 Acute kidney failure, unspecified; I27.20 Pulmonary hypertension, unspecified; E11.21 Type 2 diabetes mellitus with diabetic nephropathy; K21.9 Gastro-esophageal reflux disease without esophagitis; F32.9 Major depressive disorder, single episode, unspecified; E66.01 Morbid (severe) obesity due to excess calories; G47.33 Obstructive sleep apnea (adult) (pediatric); E11.51 Type 2 diabetes mellitus with diabetic peripheral angiopathy without gangrene; G25.81 Restless legs syndrome; I25.10 Atherosclerotic heart disease of native coronary artery without angina pectoris; N18.9 Chronic kidney disease, unspecified; R06.89 Other abnormalities of breathing
CPT/HCPCS: J1650; J1815; J7040

== ENCOUNTER → 2019-07-29 | Outpatient (CLI) | payer MEDICARE, BC ==
[~2019-07-29] VITALS: Ht 175.3 cm; Wt 159.1 kg
[~2019-07-29] MED LIST changes: +NOVOLOG FLEX100 U/ML SQ; +SILDENAFIL CITR20 M1 PO; +ZOLPIDEM TART10 MG PO
[2019-07-29 15:03] VITALS: BP 141/82
--- NOTE | 2019-07-29 15:20 | NUR ---
Patient was in outpatient clinic for dionte to be removed. He has a total of six incisions on his abdomen. 15 total dionte were removed. One incision site located on his left upper abdomen was mildly pink, I applied antibiotic ointment and advised patient to keep an eye on that site watch for pain, increased redness or warmth and to call his provider if any of these symptoms appear. He states he has no pain there currently. Steri strips were place on all incision sites, all incisions were closed and other than the exception mentioned above all were free from erythema.
== END ==
LOC: AMSURD 14:26
DX: Z48.02 Encounter for removal of sutures (principal)

== ENCOUNTER → 2019-09-23 | Outpatient (CLI) | payer MEDICARE, BC ==
[2019-07-29 15:03] VITALS: BP 141/82
[2019-09-23 17:01] LABS: EOS # 0.2 (0.04-0.40); HEMATOCRIT 41.1 % (42.0-52.0); HEMOGLOBIN 12.4 g/dL (13.5-18.0); LYMPH# 2.1 (1.50-4.00); MEAN CELL VOLUME 83 fl (78-100); MEAN CORPUSCULAR HEMOGLOBIN 25 pg (27-31); MEAN CORPUSCULAR HGB CONC 30 g/dL (33-37); MEAN PLATELET VOLUME 11.3 fl (7.4-10.4); MONO # 0.6 (0.20-0.80); NEU # 6.2 (1.40-6.50); PLATELET COUNT 192 K/mm3 (130-400); RED BLOOD COUNT 4.95 M/mm3 (4.20-5.60); RED CELL DISTRIBUTION WIDTH 15.6 % (11.5-14.5); WHITE BLOOD COUNT 9.2 K/mm3 (4.8-10.8)
[2019-09-23 17:11] LABS: POTASSIUM 3.9 mmol/L (3.5-5.1)
[2019-09-23 17:12] LABS: CALCIUM 9.4 mg/dL (8.3-10.5)
[2019-09-23 17:13] LABS: TOTAL PROTEIN 7.8 g/dL (6.4-8.3)
[2019-09-23 17:15] LABS: TOTAL BILIRUBIN 0.2 mg/dL (0.2-1.2)
[2019-09-28 22:33] LABS: VITAMIN A 41.9 mcg/dL (())
== END ==
LOC: LAB 16:49
PROVIDERS: Family Medicine
DX: E11.9 Type 2 diabetes mellitus without complications (principal); E78.5 Hyperlipidemia, unspecified; E56.9 Vitamin deficiency, unspecified; R79.89 Other specified abnormal findings of blood chemistry; Z98.84 Bariatric surgery status

== ENCOUNTER → 2019-12-06 | Outpatient (CLI) | payer MEDICARE ==
[2019-07-29 15:03] VITALS: BP 141/82
[2019-12-06 16:16] LABS: BASO # 0.1 (0.02-0.10); EOS # 0.1 (0.04-0.40); EOS % 1.3 % (0.0-4.0); HEMATOCRIT 43.4 % (42.0-52.0); HEMOGLOBIN 13.6 g/dL (13.5-18.0); LYMPH# 2.1 (1.50-4.00); MEAN CELL VOLUME 81 fl (78-100); MEAN CORPUSCULAR HEMOGLOBIN 25 pg (27-31); MEAN CORPUSCULAR HGB CONC 31 g/dL (33-37); MEAN PLATELET VOLUME 11.6 fl (7.4-10.4); MONO # 0.7 (0.20-0.80); NEU # 6.4 (1.40-6.50); PLATELET COUNT 201 K/mm3 (130-400); RED BLOOD COUNT 5.36 M/mm3 (4.20-5.60); RED CELL DISTRIBUTION WIDTH 14.7 % (11.5-14.5); WHITE BLOOD COUNT 9.4 K/mm3 (4.8-10.8)
[2019-12-06 16:30] LABS: ALBUMIN 4.2 g/dL (3.5-5.0)
[2019-12-06 16:31] LABS: CALCIUM 9.3 mg/dL (8.3-10.5)
[2019-12-06 16:32] LABS: TOTAL PROTEIN 8.2 g/dL (6.4-8.3)
[2019-12-06 16:34] LABS: TOTAL BILIRUBIN 0.3 mg/dL (0.2-1.2)
[2019-12-09 13:27] LABS: VITAMIN A 44.7 mcg/dL (())
== END ==
LOC: LAB 15:23
PROVIDERS: Family Medicine
DX: E11.9 Type 2 diabetes mellitus without complications (principal); E78.5 Hyperlipidemia, unspecified; E56.9 Vitamin deficiency, unspecified; E66.2 Morbid (severe) obesity with alveolar hypoventilation; R79.89 Other specified abnormal findings of blood chemistry; Z98.84 Bariatric surgery status

== ENCOUNTER 2019-12-19 17:00 | Emergency (ER) | payer MEDICARE, MEDICAID ==
[~2019-12-19] VITALS: Wt 146.0 kg
[2019-12-19] MEDS ORDERED: FUROSEMIDE20 MG PO (17:09)
[2019-12-19] MEDS ORDERED: PRILOSEC 20MG20 MG PO (17:09)
[2019-12-19] MEDS ORDERED: ZOLOFT 100MG100 MG PO (17:10)
[2019-12-19] MEDS ORDERED: MULTIVITAMIN1 SGL PO (17:10)
[2019-12-19] MEDS ORDERED: NEURONTIN300 MG/CAP (17:11)
[2019-12-19] MEDS ORDERED: AMITRIPTYLINE H25 M2 PO (17:11)
[2019-12-19 17:44] LABS: EOS # 0.2 (0.04-0.40); EOS % 1.6 % (0.0-4.0); HEMATOCRIT 42.5 % (42.0-52.0); HEMOGLOBIN 13.1 g/dL (13.5-18.0); LYMPH# 1.9 (1.50-4.00); MEAN CELL VOLUME 82 fl (78-100); MEAN CORPUSCULAR HEMOGLOBIN 25 pg (27-31); MEAN CORPUSCULAR HGB CONC 31 g/dL (33-37); MEAN PLATELET VOLUME 10.9 fl (7.4-10.4); MONO # 0.7 (0.20-0.80); NEU # 7.2 (1.40-6.50); PLATELET COUNT 177 K/mm3 (130-400); RED BLOOD COUNT 5.19 M/mm3 (4.20-5.60); RED CELL DISTRIBUTION WIDTH 14.6 % (11.5-14.5); WHITE BLOOD COUNT 9.9 K/mm3 (4.8-10.8)
[2019-12-19 17:51] LABS: ALBUMIN 3.8 g/dL (3.5-5.0); POTASSIUM 3.7 mmol/L (3.5-5.1)
[2019-12-19 17:52] LABS: CALCIUM 8.9 mg/dL (8.3-10.5)
[2019-12-19 17:53] LABS: TOTAL PROTEIN 7.2 g/dL (6.4-8.3)
[2019-12-19 17:55] LABS: TOTAL BILIRUBIN 0.3 mg/dL (0.2-1.2)
[2019-12-19 18:36] VITALS: BP 147/72
== END 2019-12-19 18:38 | disposition home or self-care (01) ==
LOC: ED 17:00
PROVIDERS: Nurse Practitioner Primary Care
DX: R60.0 Localized edema (principal); K21.9 Gastro-esophageal reflux disease without esophagitis; I11.0 Hypertensive heart disease with heart failure; I50.9 Heart failure, unspecified; Z98.84 Bariatric surgery status
CPT/HCPCS: J1940

== ENCOUNTER 2019-12-27 06:03 | Emergency (ER) | payer MEDICARE, MEDICAID ==
[~2019-12-27 06:03] MED LIST changes: +AMITRIPTYLINE H25 M2 PO; +FUROSEMIDE20 MG PO; +MULTIVITAMIN1 SGL PO; +NEURONTIN300 MG/CAP; +ZOLOFT 100MG100 MG PO
[2019-12-27] MEDS ORDERED: SPIRONOLACTONE50 M1 PO (06:36)
[2019-12-27 11:26] VITALS: BP 133/63
== END 2019-12-27 11:36 | disposition home or self-care (01) ==
LOC: ED 06:03
DX: T43.221A Poisoning by selective serotonin reuptake inhibitors, accidental (unintentional), initial encounter (principal); I11.0 Hypertensive heart disease with heart failure; I50.9 Heart failure, unspecified; K21.9 Gastro-esophageal reflux disease without esophagitis; E11.40 Type 2 diabetes mellitus with diabetic neuropathy, unspecified; E66.9 Obesity, unspecified; F32.9 Major depressive disorder, single episode, unspecified; G25.81 Restless legs syndrome; G47.30 Sleep apnea, unspecified; Z85.47 Personal history of malignant neoplasm of testis; Z90.49 Acquired absence of other specified parts of digestive tract; Z90.79 Acquired absence of other genital organ(s); Z98.84 Bariatric surgery status

== ENCOUNTER 2020-02-13 12:31 | Emergency (ER) | payer MEDICARE, MEDICAID ==
[~2020-02-13] VITALS: Wt 142.2 kg
[~2020-02-13 12:31] MED LIST changes: +SPIRONOLACTONE50 M1 PO
[2020-02-13 13:33] LABS: EOS # 0.2 (0.04-0.40); EOS % 1.9 % (0.0-4.0); HEMATOCRIT 41.4 % (42.0-52.0); LYMPH# 2.1 (1.50-4.00); MEAN CELL VOLUME 83 fl (78-100); MEAN CORPUSCULAR HEMOGLOBIN 26 pg (27-31); MEAN CORPUSCULAR HGB CONC 31 g/dL (33-37); MEAN PLATELET VOLUME 11.3 fl (7.4-10.4); MONO # 0.5 (0.20-0.80); NEU # 5.6 (1.40-6.50); PLATELET COUNT 155 K/mm3 (130-400); RED BLOOD COUNT 5.02 M/mm3 (4.20-5.60); RED CELL DISTRIBUTION WIDTH 15.5 % (11.5-14.5); WHITE BLOOD COUNT 8.4 K/mm3 (4.8-10.8)
[2020-02-13 13:35] LABS: URINE APPEARANCE CLEAR; URINE BILIRUBIN NEGATIVE (NEGATIVE); URINE BLOOD NEGATIVE (NEGATIVE); URINE COLOR YELLOW; URINE GLUCOSE NEGATIVE (NEGATIVE); URINE KETONE NEGATIVE (NEGATIVE); URINE LEUKOCYTE ESTERASE TRACE (NEGATIVE); URINE MUCUS PRESENT (NOT PRESENT); URINE NITRATE NEGATIVE (NEGATIVE); URINE PROTEIN(semi-quant) NEGATIVE (NEGATIVE); URINE UROBILINOGEN NORMAL (NORMAL)
[2020-02-13 13:42] LABS: ALBUMIN 3.9 g/dL (3.5-5.0)
[2020-02-13 13:43] LABS: POTASSIUM 3.8 mmol/L (3.5-5.1)
[2020-02-13 13:44] LABS: CALCIUM 8.9 mg/dL (8.3-10.5)
[2020-02-13 13:45] LABS: TOTAL PROTEIN 7.9 g/dL (6.4-8.3)
[2020-02-13 13:47] LABS: TOTAL BILIRUBIN 0.4 mg/dL (0.2-1.2)
[2020-02-13 13:51] LABS: MAGNESIUM 1.95 mg/dL (1.60-2.60)
[2020-02-13] MEDS ORDERED: BARIATRIC MV-I1 EACH PO (14:16)
[2020-02-13] MEDS ORDERED: LASIX80 M1 PO (14:22)
[2020-02-13] MEDS ORDERED: QUETIAPINE FUMA50 MG PO (14:23)
[2020-02-13 16:22] VITALS: BP 126/58
== END 2020-02-13 16:24 | disposition home or self-care (01) ==
LOC: ED 12:31
PROVIDERS: Nurse Practitioner Primary Care
DX: I10 Essential (primary) hypertension (principal); R09.02 Hypoxemia; F32.9 Major depressive disorder, single episode, unspecified; Z98.84 Bariatric surgery status

== ENCOUNTER → 2020-05-04 | Outpatient (CLI) | payer MEDICARE, MEDICAID ==
[~2020-05-04] MED LIST changes: +BARIATRIC MV-I1 EACH PO; +LASIX80 M1 PO; +QUETIAPINE FUMA50 MG PO
== END ==
LOC: LAB 09:10
DX: J02.9 Acute pharyngitis, unspecified (principal); M79.10 Myalgia, unspecified site; Z20.828 Contact with and (suspected) exposure to other viral communicable diseases

== ENCOUNTER → 2020-07-23 | Outpatient (CLI) | payer MEDICARE, MEDICAID ==
[2020-07-23 17:28] LABS: EOS # 0.1 (0.04-0.40); HEMATOCRIT 44.3 % (42.0-52.0); HEMOGLOBIN 13.7 g/dL (13.5-18.0); LYMPH# 2.3 (1.50-4.00); MEAN CELL VOLUME 86 fl (78-100); MEAN CORPUSCULAR HEMOGLOBIN 26 pg (27-31); MEAN CORPUSCULAR HGB CONC 31 g/dL (33-37); MEAN PLATELET VOLUME 10.9 fl (7.4-10.4); MONO # 0.7 (0.20-0.80); NEU # 7.3 (1.40-6.50); PLATELET COUNT 202 K/mm3 (130-400); RED BLOOD COUNT 5.18 M/mm3 (4.20-5.60); RED CELL DISTRIBUTION WIDTH 13.7 % (11.5-14.5); WHITE BLOOD COUNT 10.5 K/mm3 (4.8-10.8)
[2020-07-24 14:02] LABS: POTASSIUM 4.6 mmol/L (3.5-5.1)
== END ==
LOC: LAB 17:10
PROVIDERS: Family Medicine
DX: D50.9 Iron deficiency anemia, unspecified (principal); E11.9 Type 2 diabetes mellitus without complications

== ENCOUNTER 2020-09-30 15:01 | Emergency (ER) | payer MEDICARE, MEDICAID ==
[2020-09-30] MEDS ORDERED: SPIRONOLACTONE50 M1 PO (15:11)
[2020-09-30] MEDS ORDERED: POTASSIUM CHLO20 ME4 PO (15:11)
[2020-09-30 16:00] VITALS: BP 138/84
== END 2020-09-30 16:00 | disposition home or self-care (01) ==
LOC: ED 15:01
DX: S61.011A Laceration without foreign body of right thumb without damage to nail, initial encounter (principal); I50.9 Heart failure, unspecified; E66.9 Obesity, unspecified; Z98.84 Bariatric surgery status; W29.0XXA Contact with powered kitchen appliance, initial encounter; Y92.009 Unspecified place in unspecified non-institutional (private) residence as the place of occurrence of the external cause

== ENCOUNTER → 2020-12-25 | Outpatient (CLI) | payer MEDICARE, MEDICAID ==
[~2020-12-25] MED LIST changes: +DULOXETINE60 MG PO; +ESCITALOPRAM20 MG PO; +MIXED AMPHETAMI20 M1 PO; +PERCOCET 325 MG1 TAB PO; +PRAMIPEXOLE DIHY1 MG PO
== END ==
LOC: LAB 09:15
DX: R79.89 Other specified abnormal findings of blood chemistry (principal)

== ENCOUNTER 2020-12-28 17:15 | Emergency (ER) | payer MEDICARE, MEDICAID ==
[~2020-12-28 17:15] MED LIST changes: -DULOXETINE60 MG PO; -ESCITALOPRAM20 MG PO; -MIXED AMPHETAMI20 M1 PO; -PERCOCET 325 MG1 TAB PO; -PRAMIPEXOLE DIHY1 MG PO
[2020-12-28 18:00] LABS: BASO # 0.05 (0.02-0.10); EOS # 0.09 (0.04-0.40); EOS % 1.2 % (0.0-4.0); HEMATOCRIT 46.1 % (42.0-52.0); HEMOGLOBIN 14.6 g/dL (13.5-18.0); LYMPH# 1.76 (1.50-4.00); MEAN CELL VOLUME 81 fl (78-100); MEAN CORPUSCULAR HEMOGLOBIN 26 pg (27-31); MEAN CORPUSCULAR HGB CONC 32 g/dL (33-37); MEAN PLATELET VOLUME 11.7 fl (7.4-10.4); MONO # 0.48 (0.20-0.80); PLATELET COUNT 147 K/mm3 (130-400); RED BLOOD COUNT 5.67 M/mm3 (4.20-5.60); RED CELL DISTRIBUTION WIDTH 13.4 % (11.5-14.5); WHITE BLOOD COUNT 7.8 K/mm3 (4.8-10.8)
[2020-12-28 18:24] LABS: POTASSIUM 4.2 mmol/L (3.5-5.1); SODIUM 137 mmol/L (136-145)
[2020-12-28 18:25] LABS: CALCIUM 8.5 mg/dL (8.3-10.5)
[2020-12-28 18:26] LABS: GLUCOSE 97 mg/dL (75-110)
[2020-12-28 18:27] LABS: TOTAL PROTEIN 7.2 g/dL (6.4-8.3)
[2020-12-28 18:28] LABS: CARBON DIOXIDE 23 mmol/L (22-29); TOTAL BILIRUBIN 0.3 mg/dL (0.2-1.2)
[2020-12-28 18:32] LABS: AST-SGOT 14 U/L (5-34)
[2020-12-28 18:33] LABS: ALT/SGPT 8 U/L (0-55)
[2020-12-28 18:41] LABS: TROPONIN-I < 0.03 ng/mL (<0.030)
[2020-12-28 18:57] LABS: ALBUMIN 3.8 g/dL (3.5-5.0)
[2020-12-28 20:00] VITALS: BP 135/72
== END 2020-12-28 20:00 | disposition home or self-care (01) ==
LOC: ED 17:15
PROVIDERS: Family Medicine
DX: E11.21 Type 2 diabetes mellitus with diabetic nephropathy (principal); E86.9 Volume depletion, unspecified; R55 Syncope and collapse; G47.30 Sleep apnea, unspecified; E66.9 Obesity, unspecified; F32.9 Major depressive disorder, single episode, unspecified; I50.30 Unspecified diastolic (congestive) heart failure; Z68.41 Body mass index [BMI] 40.0-44.9, adult; Z79.899 Other long term (current) drug therapy
CPT/HCPCS: J7030

== ENCOUNTER 2020-12-30 08:44 | Emergency (ER) | payer MEDICARE, MEDICAID ==
[2020-12-30 10:39] VITALS: BP 142/72
== END 2020-12-30 10:39 | disposition home or self-care (01) ==
LOC: ED 08:44
DX: S20.212A Contusion of left front wall of thorax, initial encounter (principal); S30.0XXA Contusion of lower back and pelvis, initial encounter; I11.0 Hypertensive heart disease with heart failure; I50.9 Heart failure, unspecified; E11.9 Type 2 diabetes mellitus without complications; Z79.899 Other long term (current) drug therapy; W17.89XA Other fall from one level to another, initial encounter; Y92.009 Unspecified place in unspecified non-institutional (private) residence as the place of occurrence of the external cause
CPT/HCPCS: J1885

== ENCOUNTER → 2021-02-18 | Outpatient (CLI) | payer MEDICARE, MEDICAID ==
[~2021-02-18] MED LIST changes: +DULOXETINE60 MG PO; +ESCITALOPRAM20 MG PO; +MIXED AMPHETAMI20 M1 PO; +PERCOCET 325 MG1 TAB PO; +PRAMIPEXOLE DIHY1 MG PO
== END ==
LOC: RAD 09:00
DX: N20.0 Calculus of kidney (principal); N26.1 Atrophy of kidney (terminal); Z95.1 Presence of aortocoronary bypass graft
CPT/HCPCS: Q9967

== ENCOUNTER 2021-03-08 12:59 | Emergency (ER) | payer MEDICARE, MEDICAID ==
[~2021-03-08 12:59] MED LIST changes: -DULOXETINE60 MG PO; -ESCITALOPRAM20 MG PO; -MIXED AMPHETAMI20 M1 PO; -PERCOCET 325 MG1 TAB PO; -PRAMIPEXOLE DIHY1 MG PO
[2021-03-08 13:00] VITALS: BP 138/82
[2021-03-08] MEDS ORDERED: PERCOCET 325 MG1 TAB PO (13:32)
[2021-03-08] MEDS ORDERED: PRAMIPEXOLE DIHY1 MG PO (13:33)
[2021-03-08] MEDS ORDERED: PROAIR HFA0.09 MG/AC IH (13:33)
[2021-03-08] MEDS ORDERED: TESTOSTERO200 MG/1 M IM (13:33)
[2021-03-08] MEDS ORDERED: MIXED AMPHETAMI20 M1 PO (13:33)
[2021-03-08] MEDS ORDERED: DULOXETINE60 MG PO (13:33)
[2021-03-08 14:03] LABS: BASO # 0.06 (0.02-0.10); EOS # 0.14 (0.04-0.40); EOS % 1.6 % (0.0-4.0); HEMATOCRIT 42.7 % (42.0-52.0); HEMOGLOBIN 13.3 g/dL (13.5-18.0); LYMPH# 2.12 (1.50-4.00); MEAN CELL VOLUME 83 fl (78-100); MEAN CORPUSCULAR HEMOGLOBIN 26 pg (27-31); MEAN CORPUSCULAR HGB CONC 31 g/dL (33-37); MEAN PLATELET VOLUME 11.2 fl (7.4-10.4); MONO # 0.62 (0.20-0.80); PLATELET COUNT 175 K/mm3 (130-400); RED BLOOD COUNT 5.17 M/mm3 (4.20-5.60); RED CELL DISTRIBUTION WIDTH 15.6 % (11.5-14.5); WHITE BLOOD COUNT 8.9 K/mm3 (4.8-10.8)
[2021-03-08 14:13] LABS: ALBUMIN 3.8 g/dL (3.5-5.0); POTASSIUM 4.3 mmol/L (3.5-5.1); SODIUM 139 mmol/L (136-145)
[2021-03-08 14:15] LABS: CALCIUM 9.1 mg/dL (8.3-10.5)
[2021-03-08 14:16] LABS: GLUCOSE 100 mg/dL (75-110); TOTAL PROTEIN 7.5 g/dL (6.4-8.3)
[2021-03-08 14:17] LABS: CARBON DIOXIDE 27 mmol/L (22-29)
[2021-03-08 14:18] LABS: TOTAL BILIRUBIN 0.3 mg/dL (0.2-1.2)
[2021-03-08 14:21] LABS: ALCOHOL IN-HOUSE < 10 mg/dL (<10); AST-SGOT 17 U/L (5-34)
[2021-03-08 14:21] LABS: URINE APPEARANCE HAZY; URINE BILIRUBIN NEGATIVE (NEGATIVE); URINE BLOOD NEGATIVE (NEGATIVE); URINE COLOR YELLOW; URINE GLUCOSE NEGATIVE (NEGATIVE); URINE KETONE NEGATIVE (NEGATIVE); URINE LEUKOCYTE ESTERASE 1+ (NEGATIVE); URINE NITRATE NEGATIVE (NEGATIVE); URINE PROTEIN(semi-quant) NEGATIVE (NEGATIVE); URINE UROBILINOGEN NORMAL (NORMAL)
[2021-03-08 14:22] LABS: ALT/SGPT 11 U/L (0-55)
[2021-03-08 14:23] LABS: LIPASE 14 U/L (8-78)
== END 2021-03-08 15:44 | disposition left against medical advice (07) ==
LOC: ED 12:59
PROVIDERS: Nurse Practitioner
DX: I13.0 Hypertensive heart and chronic kidney disease with heart failure and stage 1 through stage 4 chronic kidney disease, or unspecified chronic kidney disease (principal); I50.9 Heart failure, unspecified; N18.9 Chronic kidney disease, unspecified; E11.40 Type 2 diabetes mellitus with diabetic neuropathy, unspecified; E11.22 Type 2 diabetes mellitus with diabetic chronic kidney disease; G47.30 Sleep apnea, unspecified; E66.01 Morbid (severe) obesity due to excess calories; F32.9 Major depressive disorder, single episode, unspecified; Z79.899 Other long term (current) drug therapy; Z79.84 Long term (current) use of oral hypoglycemic drugs

== ENCOUNTER 2021-04-18 09:55 | Emergency (ER) | payer MEDICARE, MEDICAID ==
[~2021-04-18 09:55] MED LIST changes: +DULOXETINE60 MG PO; +MIXED AMPHETAMI20 M1 PO; +PERCOCET 325 MG1 TAB PO; +PRAMIPEXOLE DIHY1 MG PO
[2021-04-18 11:07] LABS: BASO # 0.05 K/mm3 (0.02-0.10); EOS # 0.14 K/mm3 (0.04-0.40); EOS % 1.8 % (0.0-4.0); HEMATOCRIT 43.2 % (42.0-52.0); HEMOGLOBIN 13.7 g/dL (13.5-18.0); LYMPH# 1.77 K/mm3 (1.50-4.00); MEAN CELL VOLUME 84 fl (78-100); MEAN CORPUSCULAR HEMOGLOBIN 27 pg (27-31); MEAN CORPUSCULAR HGB CONC 32 g/dL (33-37); MEAN PLATELET VOLUME 10.8 fl (7.4-10.4); MONO # 0.47 K/mm3 (0.20-0.80); NEU # 5.49 K/mm3 (1.40-6.50); PLATELET COUNT 192 K/mm3 (130-400); RED BLOOD COUNT 5.14 M/mm3 (4.20-5.60); RED CELL DISTRIBUTION WIDTH 15.3 % (11.5-14.5); WHITE BLOOD COUNT 7.9 K/mm3 (4.8-10.8)
[2021-04-18 11:10] LABS: ALBUMIN 3.8 g/dL (3.5-5.0); POTASSIUM 4.4 mmol/L (3.5-5.1); SODIUM 138 mmol/L (136-145)
[2021-04-18 11:11] LABS: CALCIUM 9.2 mg/dL (8.3-10.5)
[2021-04-18 11:13] LABS: GLUCOSE 127 mg/dL (75-110); TOTAL PROTEIN 7.6 g/dL (6.4-8.3)
[2021-04-18 11:14] LABS: CARBON DIOXIDE 23 mmol/L (22-29); TOTAL BILIRUBIN 0.5 mg/dL (0.2-1.2)
[2021-04-18 11:18] LABS: AST-SGOT 14 U/L (5-34)
[2021-04-18 11:19] LABS: ALT/SGPT 10 U/L (0-55)
[2021-04-18 11:30] LABS: ACETAMINOPHEN < 1 ug/mL; ALCOHOL IN-HOUSE < 10 mg/dL (<10)
[2021-04-18 11:35] LABS: URINE BILIRUBIN NEGATIVE (NEGATIVE); URINE BLOOD NEGATIVE (NEGATIVE); URINE COLOR YELLOW; URINE GLUCOSE NEGATIVE (NEGATIVE); URINE KETONE NEGATIVE (NEGATIVE); URINE NITRATE NEGATIVE (NEGATIVE); URINE UROBILINOGEN NORMAL (NORMAL)
[2021-04-18 11:36] LABS: URINE APPEARANCE HAZY; URINE LEUKOCYTE ESTERASE TRACE (NEGATIVE); URINE MUCUS PRESENT (NOT PRESENT); URINE PROTEIN(semi-quant) NEGATIVE (NEGATIVE)
[2021-04-18 22:30] VITALS: BP 144/56
== END 2021-04-18 22:30 ==
LOC: ED 09:55
PROVIDERS: Physician Assistant
DX: F32.A Depression, unspecified (principal); E11.21 Type 2 diabetes mellitus with diabetic nephropathy; E66.01 Morbid (severe) obesity due to excess calories; G47.30 Sleep apnea, unspecified; I11.0 Hypertensive heart disease with heart failure; I50.9 Heart failure, unspecified; Z20.822 Contact with and (suspected) exposure to COVID-19; Z79.899 Other long term (current) drug therapy

== ENCOUNTER 2021-05-13 16:52 | Emergency (ER) | payer MEDICARE, MEDICAID ==
[2021-05-13] MEDS ORDERED: DESYREL50 MG PO (17:34)
[2021-05-13] MEDS ORDERED: ESCITALOPRAM20 MG PO (17:34)
[2021-05-13 18:22] LABS: BASO # 0.05 K/mm3 (0.02-0.10); EOS # 0.07 K/mm3 (0.04-0.40); EOS % 0.8 % (0.0-4.0); HEMATOCRIT 41.9 % (42.0-52.0); HEMOGLOBIN 13.5 g/dL (13.5-18.0); LYMPH# 1.75 K/mm3 (1.50-4.00); MEAN CELL VOLUME 84 fl (78-100); MEAN CORPUSCULAR HEMOGLOBIN 27 pg (27-31); MEAN CORPUSCULAR HGB CONC 32 g/dL (33-37); MEAN PLATELET VOLUME 11.2 fl (7.4-10.4); MONO # 0.57 K/mm3 (0.20-0.80); NEU # 6.71 K/mm3 (1.40-6.50); PLATELET COUNT 186 K/mm3 (130-400); RED BLOOD COUNT 4.98 M/mm3 (4.20-5.60); RED CELL DISTRIBUTION WIDTH 13.8 % (11.5-14.5); WHITE BLOOD COUNT 9.2 K/mm3 (4.8-10.8)
[2021-05-13 18:34] LABS: ALBUMIN 3.8 g/dL (3.5-5.0)
[2021-05-13 18:37] LABS: TOTAL PROTEIN 7.4 g/dL (6.4-8.3)
[2021-05-13 18:39] LABS: TOTAL BILIRUBIN 0.3 mg/dL (0.2-1.2)
[2021-05-13 18:48] LABS: URINE APPEARANCE HAZY; URINE BILIRUBIN 2+ (NEGATIVE); URINE BLOOD TRACE (NEGATIVE); URINE COLOR YELLOW; URINE GLUCOSE NEGATIVE (NEGATIVE); URINE KETONE NEGATIVE (NEGATIVE); URINE LEUKOCYTE ESTERASE 1+ (NEGATIVE); URINE NITRATE NEGATIVE (NEGATIVE); URINE PROTEIN(semi-quant) 1+ mg/dL (NEGATIVE); URINE UROBILINOGEN 4 mg/dL (NORMAL); URINE WBC 31-50 /hpf (0-3)
[2021-05-13 18:49] LABS: URINE MUCUS PRESENT (NOT PRESENT)
[2021-05-13] MEDS ORDERED: BACTRIM DS TAB1 EACH PO (19:20)
[2021-05-13 19:34] VITALS: BP 145/78
== END 2021-05-13 19:34 | disposition home or self-care (01) ==
LOC: ED 16:52
PROVIDERS: Nurse Practitioner
DX: N49.2 Inflammatory disorders of scrotum (principal); N39.0 Urinary tract infection, site not specified; I11.0 Hypertensive heart disease with heart failure; I50.9 Heart failure, unspecified; F32.A Depression, unspecified; E66.01 Morbid (severe) obesity due to excess calories; E11.40 Type 2 diabetes mellitus with diabetic neuropathy, unspecified; Z79.899 Other long term (current) drug therapy

== ENCOUNTER 2021-11-20 10:01 | Emergency (ER) | payer MEDICARE, MEDICAID ==
[~2021-11-20 10:01] MED LIST changes: +ESCITALOPRAM20 MG PO
[2021-11-20 11:49] LABS: BASO # 0.09 K/mm3 (0.02-0.10); EOS # 0.14 K/mm3 (0.04-0.40); EOS % 1.7 % (0.0-4.0); HEMATOCRIT 45.9 % (42.0-52.0); HEMOGLOBIN 14.2 g/dL (13.5-18.0); LYMPH# 2.71 K/mm3 (1.50-4.00); MEAN CELL VOLUME 86 fl (78-100); MEAN CORPUSCULAR HEMOGLOBIN 27 pg (27-31); MEAN CORPUSCULAR HGB CONC 31 g/dL (33-37); MONO # 0.73 K/mm3 (0.20-0.80); NEU # 4.57 K/mm3 (1.40-6.50); PLATELET COUNT 183 K/mm3 (130-400); RED BLOOD COUNT 5.31 M/mm3 (4.20-5.60); RED CELL DISTRIBUTION WIDTH 13.3 % (11.5-14.5); WHITE BLOOD COUNT 8.3 K/mm3 (4.8-10.8)
[2021-11-20] MEDS ORDERED: CLONIDINE HYDR0.1 MG PO (11:51)
[2021-11-20 11:58] LABS: POTASSIUM 5.1 mmol/L (3.5-5.1)
[2021-11-20 11:59] LABS: CALCIUM 8.9 mg/dL (8.3-10.5)
[2021-11-20 12:00] LABS: TOTAL PROTEIN 7.9 g/dL (6.4-8.3)
[2021-11-20 12:02] LABS: TOTAL BILIRUBIN 0.3 mg/dL (0.2-1.2)
[2021-11-20 12:41] LABS: URINE APPEARANCE CLOUDY; URINE BILIRUBIN NEGATIVE (NEGATIVE); URINE BLOOD NEGATIVE (NEGATIVE); URINE COLOR YELLOW; URINE GLUCOSE NEGATIVE (NEGATIVE); URINE KETONE NEGATIVE (NEGATIVE); URINE LEUKOCYTE ESTERASE 1+ (NEGATIVE); URINE NITRATE NEGATIVE (NEGATIVE); URINE PROTEIN(semi-quant) NEGATIVE (NEGATIVE); URINE UROBILINOGEN NORMAL (NORMAL)
[2021-11-20] MEDS ORDERED: MECLIZINE PO (14:18)
[2021-11-20 15:20] VITALS: BP 114/63
== END 2021-11-20 14:42 | disposition home or self-care (01) ==
LOC: ED 10:01
PROVIDERS: Family Medicine; Physician Assistant
DX: E86.0 Dehydration (principal); R55 Syncope and collapse; G47.33 Obstructive sleep apnea (adult) (pediatric); S80.812A Abrasion, left lower leg, initial encounter; S80.811A Abrasion, right lower leg, initial encounter; W54.8XXA Other contact with dog, initial encounter
CPT/HCPCS: J1885; J7030

== ENCOUNTER 2021-12-06 13:53 | Emergency (ER) | payer MEDICARE, MEDICAID ==
[~2021-12-06] VITALS: Ht 175.3 cm; Wt 104.0 kg
[~2021-12-06 13:53] MED LIST changes: +CLONIDINE HYDR0.1 MG PO; +MECLIZINE PO
[2021-12-06 14:59] LABS: BASO # 0.04 K/mm3 (0.02-0.10); EOS # 0.13 K/mm3 (0.04-0.40); EOS % 1.8 % (0.0-4.0); HEMATOCRIT 42.6 % (42.0-52.0); HEMOGLOBIN 13.5 g/dL (13.5-18.0); LYMPH# 1.95 K/mm3 (1.50-4.00); MEAN CELL VOLUME 85 fl (78-100); MEAN CORPUSCULAR HEMOGLOBIN 27 pg (27-31); MEAN CORPUSCULAR HGB CONC 32 g/dL (33-37); MEAN PLATELET VOLUME 11.5 fl (7.4-10.4); MONO # 0.67 K/mm3 (0.20-0.80); NEU # 4.48 K/mm3 (1.40-6.50); PLATELET COUNT 162 K/mm3 (130-400); RED CELL DISTRIBUTION WIDTH 13.2 % (11.5-14.5); WHITE BLOOD COUNT 7.3 K/mm3 (4.8-10.8)
[2021-12-06 15:06] LABS: ALBUMIN 3.8 g/dL (3.5-5.0); POTASSIUM 4.7 mmol/L (3.5-5.1); SODIUM 138 mmol/L (136-145)
[2021-12-06 15:07] LABS: CALCIUM 8.8 mg/dL (8.3-10.5)
[2021-12-06 15:08] LABS: GLUCOSE 118 mg/dL (75-110)
[2021-12-06 15:09] LABS: CARBON DIOXIDE 23 mmol/L (22-29); TOTAL PROTEIN 7.1 g/dL (6.4-8.3)
[2021-12-06 15:10] LABS: TOTAL BILIRUBIN 0.3 mg/dL (0.2-1.2)
[2021-12-06 15:14] LABS: AST-SGOT 14 U/L (5-34)
[2021-12-06 15:15] LABS: ALT/SGPT 9 U/L (0-55)
[2021-12-06 15:18] LABS: ACETAMINOPHEN < 1 ug/mL; ALCOHOL IN-HOUSE < 10 mg/dL (<10)
[2021-12-06] MEDS ORDERED: PREGABALIN75 MG PO (16:24)
[2021-12-06] MEDS ORDERED: BRINTELLIX10 MG PO (16:25)
[2021-12-06] MEDS ORDERED: FUROSEMIDE20 MG PO (16:25)
[2021-12-06] MEDS ORDERED: SILDENAFIL CITR50 MG PO (16:26)
[2021-12-06] MEDS ORDERED: FAMOTIDINE20 MG PO (16:27)
[2021-12-06 18:35] VITALS: BP 127/51
== END 2021-12-06 18:35 | disposition home or self-care (01) ==
LOC: ED 13:53
PROVIDERS: Nurse Practitioner
DX: R45.851 Suicidal ideations (principal); F17.200 Nicotine dependence, unspecified, uncomplicated; Z28.311 Partially vaccinated for COVID-19

== ENCOUNTER 2021-12-26 09:10 | Emergency (ER) | payer MEDICARE, MEDICAID ==
[~2021-12-26 09:10] MED LIST changes: -DECADRON6 M1 PO
[2021-12-26 09:55] LABS: BASO # 0.01 K/mm3 (0.02-0.10); EOS # 0.01 K/mm3 (0.04-0.40); EOS % 0.3 % (0.0-4.0); HEMATOCRIT 43.5 % (42.0-52.0); LYMPH# 0.92 K/mm3 (1.50-4.00); MEAN CELL VOLUME 84 fl (78-100); MEAN CORPUSCULAR HEMOGLOBIN 27 pg (27-31); MEAN CORPUSCULAR HGB CONC 32 g/dL (33-37); MEAN PLATELET VOLUME 11.1 fl (7.4-10.4); MONO # 0.56 K/mm3 (0.20-0.80); NEU # 2.47 K/mm3 (1.40-6.50); PLATELET COUNT 94 K/mm3 (130-400); RED BLOOD COUNT 5.17 M/mm3 (4.20-5.60); RED CELL DISTRIBUTION WIDTH 14.2 % (11.5-14.5)
[2021-12-26 10:04] LABS: ALBUMIN 3.9 g/dL (3.5-5.0); POTASSIUM 4.5 mmol/L (3.5-5.1); SODIUM 137 mmol/L (136-145)
[2021-12-26 10:05] LABS: CALCIUM 8.7 mg/dL (8.3-10.5)
[2021-12-26 10:06] LABS: GLUCOSE 101 mg/dL (75-110); TOTAL PROTEIN 7.2 g/dL (6.4-8.3)
[2021-12-26 10:07] LABS: CARBON DIOXIDE 21 mmol/L (22-29)
[2021-12-26 10:08] LABS: TOTAL BILIRUBIN 0.3 mg/dL (0.2-1.2)
[2021-12-26 10:12] LABS: AST-SGOT 24 U/L (5-34)
[2021-12-26 10:13] LABS: ALT/SGPT 11 U/L (0-55)
[2021-12-26 10:19] LABS: TROPONIN-I < 0.030 ng/mL (<0.030)
[2021-12-26 10:22] LABS: D-DIMER 0.94 mg/L FEU (0.15-0.50)
[2021-12-26] MEDS ORDERED: DECADRON6 M1 PO (12:43)
[2021-12-26 13:12] VITALS: BP 109/61
== END 2021-12-26 13:13 | disposition home or self-care (01) ==
LOC: ED 09:10
PROVIDERS: Physician Assistant
DX: U07.1 COVID-19 (principal); J44.9 Chronic obstructive pulmonary disease, unspecified; R79.1 Abnormal coagulation profile; Z28.310 Unvaccinated for COVID-19; Z73.0 Burn-out
CPT/HCPCS: J1100; Q9967

== ENCOUNTER → 2021-12-26 | Outpatient (CLI) | payer MEDICARE, MEDICAID ==
[~2021-12-26] VITALS: Ht 175.3 cm; Wt 104.0 kg
[~2021-12-26] MED LIST changes: +BRINTELLIX10 MG PO; +DECADRON6 M1 PO; +FAMOTIDINE20 MG PO; +PREGABALIN75 MG PO; +SILDENAFIL CITR50 MG PO
[2021-12-26 13:09] VITALS: BP 109/61
[2021-12-26 14:13] VITALS: BP 109/78
== END ==
LOC: AMSURD 13:00
DX: U07.1 COVID-19 (principal); E11.9 Type 2 diabetes mellitus without complications

== ENCOUNTER 2022-02-11 15:30 | Emergency (ER) | payer MEDICARE, MEDICAID ==
[~2022-02-11] VITALS: Ht 175.3 cm; Wt 104.0 kg
[~2022-02-11 15:30] MED LIST changes: +DECADRON6 M1 PO
[2022-02-11] MEDS ORDERED: PREGABALIN300 MG PO (15:58)
[2022-02-11 16:08] LABS: BASO # 0.03 K/mm3 (0.02-0.10); EOS # 0.08 K/mm3 (0.04-0.40); HEMATOCRIT 44.2 % (42.0-52.0); HEMOGLOBIN 14.3 g/dL (13.5-18.0); LYMPH# 2.31 K/mm3 (1.50-4.00); MEAN CELL VOLUME 85 fl (78-100); MEAN CORPUSCULAR HEMOGLOBIN 27 pg (27-31); MEAN CORPUSCULAR HGB CONC 32 g/dL (33-37); MEAN PLATELET VOLUME 10.1 fl (7.4-10.4); MONO # 0.62 K/mm3 (0.20-0.80); NEU # 5.05 K/mm3 (1.40-6.50); PLATELET COUNT 193 K/mm3 (130-400); RED BLOOD COUNT 5.23 M/mm3 (4.20-5.60); RED CELL DISTRIBUTION WIDTH 16.4 % (11.5-14.5); WHITE BLOOD COUNT 8.1 K/mm3 (4.8-10.8)
[2022-02-11 16:15] LABS: ALBUMIN 3.9 g/dL (3.5-5.0)
[2022-02-11 16:16] LABS: SODIUM 139 mmol/L (136-145)
[2022-02-11 16:17] LABS: CALCIUM 8.8 mg/dL (8.3-10.5)
[2022-02-11 16:18] LABS: GLUCOSE 146 mg/dL (75-110); TOTAL PROTEIN 6.9 g/dL (6.4-8.3)
[2022-02-11 16:19] LABS: CARBON DIOXIDE 23 mmol/L (22-29)
[2022-02-11 16:20] LABS: TOTAL BILIRUBIN 0.2 mg/dL (0.2-1.2)
[2022-02-11 16:23] LABS: AST-SGOT 14 U/L (5-34)
[2022-02-11 16:25] LABS: ACETAMINOPHEN 11 ug/mL; ALT/SGPT 7 U/L (0-55)
[2022-02-11 16:28] LABS: ALCOHOL IN-HOUSE < 10 mg/dL (<10)
[2022-02-11 17:12] LABS: URINE APPEARANCE HAZY; URINE BILIRUBIN NEGATIVE (NEGATIVE); URINE BLOOD NEGATIVE (NEGATIVE); URINE COLOR YELLOW; URINE GLUCOSE NEGATIVE (NEGATIVE); URINE KETONE NEGATIVE (NEGATIVE); URINE LEUKOCYTE ESTERASE 1+ (NEGATIVE); URINE NITRATE NEGATIVE (NEGATIVE); URINE PROTEIN(semi-quant) NEGATIVE (NEGATIVE); URINE UROBILINOGEN NORMAL (NORMAL); URINE WBC 31-50 /hpf (0-3)
[2022-02-11 17:13] LABS: URINE MUCUS PRESENT (NOT PRESENT)
[2022-02-11] MEDS ORDERED: PERCOCET 325 MG1 TA5 PO (21:03)
[2022-02-12 04:30] VITALS: BP 116/79
== END 2022-02-12 13:19 | disposition left against medical advice (07) ==
LOC: ED 15:30
PROVIDERS: Physician Assistant
DX: F32.A Depression, unspecified (principal); R45.851 Suicidal ideations; N39.0 Urinary tract infection, site not specified; Z20.822 Contact with and (suspected) exposure to COVID-19

== ENCOUNTER → 2022-08-25 | Outpatient (CLI) | payer MEDICARE, MEDICAID ==
[~2022-08-25] MED LIST changes: +CALCIUM + D3 E1 EACH PO; +DIVALPROEX SOD500 M2 PO; +DRAMAMINE LESS25 MG PO; +MAGNESIUM400 MG PO; +PERCOCET 325 MG1 TA5 PO; +PREGABALIN300 MG PO
[2022-08-25 08:52] LABS: BASO # 0.06 K/mm3 (0.02-0.10); EOS # 0.13 K/mm3 (0.04-0.40); EOS % 1.9 % (0.0-4.0); HEMATOCRIT 43.7 % (42.0-52.0); HEMOGLOBIN 14.1 g/dL (13.5-18.0); LYMPH# 2.24 K/mm3 (1.50-4.00); MEAN CELL VOLUME 84 fl (78-100); MEAN CORPUSCULAR HEMOGLOBIN 27 pg (27-31); MEAN CORPUSCULAR HGB CONC 32 g/dL (33-37); MEAN PLATELET VOLUME 10.8 fl (7.4-10.4); MONO # 0.49 K/mm3 (0.20-0.80); NEU # 3.85 K/mm3 (1.40-6.50); PLATELET COUNT 173 K/mm3 (130-400); RED BLOOD COUNT 5.22 M/mm3 (4.20-5.60); RED CELL DISTRIBUTION WIDTH 14.4 % (11.5-14.5); WHITE BLOOD COUNT 6.8 K/mm3 (4.8-10.8)
[2022-08-25 08:55] LABS: POTASSIUM 4.1 mmol/L (3.5-5.1)
[2022-08-25 08:56] LABS: ALBUMIN 4.2 g/dL (3.5-5.0)
[2022-08-25 08:57] LABS: CALCIUM 10.2 mg/dL (8.3-10.5)
[2022-08-25 08:58] LABS: TOTAL PROTEIN 7.8 g/dL (6.4-8.3)
[2022-08-25 09:00] LABS: TOTAL BILIRUBIN 0.5 mg/dL (0.2-1.2)
== END ==
LOC: LAB 08:03
PROVIDERS: Family Medicine
DX: I11.0 Hypertensive heart disease with heart failure (principal); E78.5 Hyperlipidemia, unspecified; Z12.5 Encounter for screening for malignant neoplasm of prostate; G89.29 Other chronic pain; K21.9 Gastro-esophageal reflux disease without esophagitis; E13.29 Other specified diabetes mellitus with other diabetic kidney complication; R79.89 Other specified abnormal findings of blood chemistry; G25.81 Restless legs syndrome; I87.2 Venous insufficiency (chronic) (peripheral); G64 Other disorders of peripheral nervous system; G47.33 Obstructive sleep apnea (adult) (pediatric); E66.01 Morbid (severe) obesity due to excess calories; F32.1 Major depressive disorder, single episode, moderate; D50.9 Iron deficiency anemia, unspecified; Z00.00 Encounter for general adult medical examination without abnormal findings; G47.09 Other insomnia; K59.09 Other constipation

== ENCOUNTER → 2022-08-27 | Outpatient (CLI) | payer MEDICARE, MEDICAID | LOC: RAD 08:54 | DX: M17.11 Unilateral primary osteoarthritis, right knee (principal) ==

== ENCOUNTER → 2023-08-04 | Outpatient (CLI) | payer MEDICARE, MEDICAID ==
[~2023-08-04] MED LIST changes: +KETOROLAC10 MG PO; +WELLBUTRIN SR100 M3 PO
== END ==
LOC: LAB 08:58
DX: Z51.81 Encounter for therapeutic drug level monitoring (principal)

== ENCOUNTER → 2023-08-05 | Outpatient (CLI) | payer MEDICARE, MEDICAID ==
[2023-08-05 09:35] LABS: ALBUMIN 4.3 g/dL (3.5-5.0)
[2023-08-05 09:37] LABS: TOTAL PROTEIN 7.1 g/dL (6.4-8.3)
[2023-08-05 09:39] LABS: TOTAL BILIRUBIN 0.4 mg/dL (0.2-1.2)
[2023-08-05 21:37] LABS: CREATININE OTHER SOURCE 52 mg/dL (47-110)
== END ==
LOC: LAB 09:14
PROVIDERS: Student in an Organized Health Care Education/Training Program
DX: Z12.5 Encounter for screening for malignant neoplasm of prostate (principal); E78.2 Mixed hyperlipidemia; E11.42 Type 2 diabetes mellitus with diabetic polyneuropathy

== ENCOUNTER 2023-08-10 16:27 | Emergency (ER) | payer MEDICARE, MEDICAID ==
[~2023-08-10] VITALS: Ht 175.3 cm; Wt 104.5 kg
[2023-08-10 16:53] LABS: BASO # 0.06 K/mm3 (0.02-0.10); EOS # 0.09 K/mm3 (0.04-0.40); EOS % 1.1 % (0.0-4.0); HEMOGLOBIN 12.7 g/dL (13.5-18.0); MEAN CELL VOLUME 87 fl (78-100); MEAN CORPUSCULAR HEMOGLOBIN 28 pg (27-31); MEAN CORPUSCULAR HGB CONC 32 g/dL (33-37); MEAN PLATELET VOLUME 10.4 fl (7.4-10.4); MONO # 0.56 K/mm3 (0.20-0.80); NEU # 4.93 K/mm3 (1.40-6.50); PLATELET COUNT 189 K/mm3 (130-400); RED BLOOD COUNT 4.62 M/mm3 (4.20-5.60); RED CELL DISTRIBUTION WIDTH 13.4 % (11.5-14.5); WHITE BLOOD COUNT 7.9 K/mm3 (4.8-10.8)
[2023-08-10 16:59] LABS: ALBUMIN 4.2 g/dL (3.5-5.0)
[2023-08-10 17:00] LABS: SODIUM 139 mmol/L (136-145)
[2023-08-10 17:01] LABS: CALCIUM 8.9 mg/dL (8.3-10.5)
[2023-08-10 17:02] LABS: GLUCOSE 96 mg/dL (75-110); TOTAL PROTEIN 7.2 g/dL (6.4-8.3)
[2023-08-10 17:03] LABS: CARBON DIOXIDE 28 mmol/L (22-29)
[2023-08-10 17:07] LABS: AST-SGOT 15 U/L (5-34)
[2023-08-10 17:08] LABS: ALT/SGPT 10 U/L (0-55)
[2023-08-10 17:15] LABS: TROPONIN-I < 0.030 ng/mL (0.00-0.033)
[2023-08-10 17:18] LABS: TOTAL BILIRUBIN 0.23 mg/dL (0.2-1.2)
[2023-08-10 18:50] VITALS: BP 118/64
== END 2023-08-10 18:56 | disposition home or self-care (01) ==
LOC: ED 16:27
PROVIDERS: Nurse Practitioner Family
DX: R07.2 Precordial pain (principal)
CPT/HCPCS: J7030

== ENCOUNTER 2024-04-21 02:10 | Emergency (ER) | payer MEDICARE ==
[~2024-04-21] VITALS: Wt 113.5 kg
[2024-04-21] MEDS ORDERED: NS 1,000 ML IV ONE (02:45)
[2024-04-21] MEDS ORDERED: Ondansetron 4 MG/2 ML VIAL IV ONE (02:45)
[2024-04-21] MEDS ORDERED: Ketorolac 30 MG/ML VIAL IV ONE (02:45)
[2024-04-21 03:01] LABS: HEMOGLOBIN 13.1 g/dL (13.5-18.0); MEAN CELL VOLUME 84 fl (78-100); MEAN CORPUSCULAR HEMOGLOBIN 27 pg (27-31); MEAN CORPUSCULAR HGB CONC 32 g/dL (33-37); MEAN PLATELET VOLUME 10.9 fl (7.4-10.4); PLATELET COUNT 198 K/mm3 (130-400); RED BLOOD COUNT 4.89 M/mm3 (4.20-5.60); RED CELL DISTRIBUTION WIDTH 13.5 % (11.5-14.5); WHITE BLOOD COUNT 11.9 K/mm3 (4.8-10.8)
[2024-04-21 03:16] LABS: ALBUMIN 4.3 g/dL (3.5-5.0)
[2024-04-21 03:17] LABS: CALCIUM 9.5 mg/dL (8.3-10.5)
[2024-04-21 03:18] LABS: TOTAL PROTEIN 7.9 g/dL (6.4-8.3)
[2024-04-21 03:20] LABS: TOTAL BILIRUBIN 0.3 mg/dL (0.2-1.2)
[2024-04-21 03:31] LABS: LYMPHOCYTE 20 % (20-51); MONOCYTE 13 % (3-10); NEUTROPHILS 64 % (42-75)
[2024-04-21] MEDS ORDERED: Iohexol 300 - 100 ML VIAL IV ONE (03:33)
[2024-04-21 03:41] LABS: URINE APPEARANCE CLEAR (CLEAR); URINE COLOR YELLOW (YELLOW)
[2024-04-21 03:49] LABS: URINE BILIRUBIN NEGATIVE (NEGATIVE); URINE BLOOD NEGATIVE (NEGATIVE); URINE GLUCOSE NEGATIVE (NEGATIVE); URINE KETONE NEGATIVE (NEGATIVE); URINE LEUKOCYTE ESTERASE NEGATIVE (NEGATIVE); URINE NITRATE NEGATIVE (NEGATIVE); URINE PROTEIN(semi-quant) NEGATIVE (NEGATIVE); URINE WBC 0-1 /hpf (0-3)
[2024-04-21 03:50] LABS: URINE MUCUS PRESENT (NOT PRESENT)
[2024-04-21] MEDS ORDERED: Morphine 4 MG/ML VIAL IV ONE (05:00)
[2024-04-21 05:30] VITALS: BP 142/71
== END 2024-04-21 05:30 | disposition short-term general hospital (02) ==
LOC: ED 02:10
PROVIDERS: Family Medicine
DX: K56.609 Unspecified intestinal obstruction, unspecified as to partial versus complete obstruction (principal); E66.01 Morbid (severe) obesity due to excess calories
CPT/HCPCS: J1885; J2270; J2405; J7030; Q9967